=== PATIENT | female | born 1940 | race Caucasian/White ===

== ENCOUNTER → 2022-03-02 08:40 | Outpatient (CLI) | payer MEDICARE, SELFPAY ==
--- NOTE | 2022-03-02 08:49 | CT_ITS ---
FINAL REPORT CLINICAL HISTORY: CHRONIC ACQUIRED LYMPHEDEMA FINDINGS: Axial CT images of the abdomen and pelvis were obtained without intravenous contrast. Coronal reformatted images were also obtained.This study was performed with techniques to keep radiation doses as low as reasonably achievable (ALARA). Individualized dose reduction techniques using automated exposure control or adjustment of mA and/or kV according to the patient's size were employed. Abdomen: There is diffuse degenerative change in the visualized spine. There are spinal rods in the thoracolumbar spine and upper pelvis causing streak artifact which obscures visualization. There is no evidence of renal stone or hydronephrosis. There is a 17 mm probable cyst in the left hepatic lobe. The gallbladder is present. The spleen and pancreas have an unremarkable, unenhanced appearance. There is diffuse colonic diverticulosis. No inflammatory process is identified. Pelvis: Images of the pelvis reveal no evidence of ureteral dilation or ureteral stone.No mass or abnormal fluid collection is identified. There has been hysterectomy. IMPRESSION: Spinal rods causing streak artifact. 17 mm probable cyst in the left hepatic lobe. Diverticulosis without evidence diverticulitis. Reviewed, Interpreted and Dictated by Travis Figueroa III, MD Transcribed by Al Farmer Authenticated and . [facility]
--- NOTE | 2022-03-02 08:49 | CT_ITS ---
FINAL REPORT TECHNIQUE: Axial images were obtained from the lung apex to the mid abdomen by computed tomography. Coronal reformatted images were obtained. This study was performed with techniques to keep radiation doses as low as reasonably achievable, (ALARA). Individualized dose reduction techniques using automated exposure control or adjustment of mA and/or kV according to the patient''s size were employed. CLINICAL HISTORY: HISTORY OF LYMPHOMA FINDINGS: There is no axillary adenopathy. There is no hilar or mediastinal adenopathy. There is severe coronary artery calcification. Heart size is normal. There is no pericardial or pleural effusion. There is bilateral apical scarring. A calcified granuloma is seen in the left upper lobe. There is soft tissue in the lingula and left lower lobe favoring atelectasis or scarring. No suspicious infiltrate or nodule is identified. There is diffuse thoracic kyphosis with spinal rods and multilevel changes of kyphoplasty. IMPRESSION: Soft tissue in the lingula and left lower lobe favors atelectasis or scarring. Severe coronary artery calcification. Reviewed, Interpreted and Dictated by Travis Figueroa III, MD Transcribed by Al Farmer Authenticated and [facility]
== END ==
PROVIDERS: PCP Internal Medicine Adolescent Medicine; Visit Provider Nurse Practitioner Family
DX: I89.0 Lymphedema, not elsewhere classified (principal); Z85.79 Personal history of other malignant neoplasms of lymphoid, hematopoietic and related tissues
CPT/HCPCS: 71250; 74176

== ENCOUNTER → 2022-08-17 15:35 | Outpatient (CLI) | payer OTHER, MEDICARE, SELFPAY | PROVIDERS: PCP Nurse Practitioner Family; Visit Provider Nurse Practitioner Family | DX: S81.801S Unspecified open wound, right lower leg, sequela (principal); B96.5 Pseudomonas (aeruginosa) (mallei) (pseudomallei) as the cause of diseases classified elsewhere | CPT/HCPCS: 87070; 87077; 87186; 87205 ==

== ENCOUNTER 2022-09-07 14:30 | Outpatient (RCR) | payer OTHER, MEDICARE, SELFPAY ==
--- NOTE | 2022-08-17 15:41 | HMH.PTOPWND ---
Rehab Outpt Wound Evaluation Rehab OP Wound Evaluation Start: 08/17/22 14:50 Freq: Status: Active Protocol: Document 08/17/22 15:22 PHOYOHANA (Rec: 08/17/22 15:40 [id number] [id number]) E-signed By Harvey Mcclelland, PT Subjective/History History History This is the initial PT eval for Eri Retana 82 yowf who presents with c/o pain, tenderness, swelling, and wounds on her R lower leg x ~ 2 mos. She reports insidious onset of symptoms with wounds beginning as small blisters that opened and grew in size. She presents with significant drainage from the R lower leg wounds as well. She has PMH of CVI, CHF, UTI, severe chronic back pain throughout. Subjective Subjective TTP: 3/4 to R lower leg. 3+ pitting edema noted from R mid -calf distally. Severe erythema noted throughout R lower leg. Wound Eval Wound Right Lateral Calf Wound Type Stasis Ulcer Is This a Chronic Wound Yes Wound Length (cm) 6.0 Wound Width (cm) 4.0 Wound Depth (cm) 0.1 Wound Bed Appearance Beefy Red,Yellow,Slough Percentage Granulated (%) 10 Percentage of Slough (%) 90 Wound Margins Description Indistinct Surrounding Tissue Appearance Bright Red Edema Type Pitting Edema Degree 3+ Query Text:1+ Trace, Barely Detectable, Rebound 15-30 seconds 2+ Moderate, Slight Indentation, Rebound 10-20 seconds 3+ Deep, Deeper Indentation, Rebound > 30 seconds 4+ Very Deep, Rebound > 60 seconds Edema Appearance Weeping Drainage Description Yellow Drainage Amount Large Wound Topical Solution/Irrigant Saline Irrigant Primary Dressing Silver Dressing Comment opticell Ag Wound Secondary Dressing Type Unna Boot Comment 2 layer zinc compression wrap Wound Debridement Method Gauze,Mechanical Wound Debridement Amount of Tissue Minimal Removed Dressing Change Patient Tolerance Tolerated Well Right Anterior Ramirez Wound Type Stasis Ulcer Is This a Chronic Wound Yes Wound Length (cm) 1.5 Wound Width (cm)
== END 2022-09-07 14:35 | disposition home or self-care (01) ==
LOC: PT 14:30
PROVIDERS: PCP Internal Medicine Adolescent Medicine; Visit Provider Nurse Practitioner Family
DX: S81.802A Unspecified open wound, left lower leg, initial encounter (principal)
CPT/HCPCS: 29580; 97140; 97163; 97597

== ENCOUNTER 2022-12-01 11:46 | Emergency (ER) | payer OTHER, MEDICARE, SELFPAY ==
[2022-12-01] VITALS (14 sets, daily range): BP systolic 112–149; BP diastolic 59–94; PULSE 80–94; RESP 16–26; TEMP 36.6–36.8; O2SAT 92–96; BMI 27.4
--- NOTE | 2022-12-01 11:49 | ECG_ITS ---
APPROVED REPORT Exam: Resting ECG HR:78 bpm ECG Measurements Heart Rate 78 AXES AZ 231 P 44 QRSd 134 QRS -51 QT 432 T 37 QTc 465 Conclusion SINUS RHYTHM WITH FIRST DEGREE AV BLOCK INTRAVENTRICULAR CONDUCTION DELAY [130+ ms QRS DURATION] LEFT VENTRICULAR HYPERTROPHY AND ST-T CHANGE [VOLTAGE CRITERIA PLUS ST/T ABNORMALITY] INFERIOR MYOCARDIAL INFARCTION , PROBABLY OLD [40+ ms Q WAVE AND/OR ST/T ABNORMALITY IN II/aVF] ANTEROSEPTAL MYOCARDIAL INFARCTION , OF INDETERMINATE AGE [40+ ms Q WAVE IN V1-V4] ABNORMAL ECG UNCONFIRMED REPORT Electronically signed by : Piter Mcpherson MD 12/03/2022 14:25:44
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
--- NOTE | 2022-12-01 11:52 | PC.NURSE ---
FAST exam negative per Dr. Sanchez
--- NOTE | 2022-12-01 11:52 | PC.NURSE ---
EKG obtained per RT
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
--- NOTE | 2022-12-01 11:58 | PC.NURSE ---
Radiology at bedside.
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
--- NOTE | 2022-12-01 12:00 | PC.NURSE ---
pt going to CT at this time.
--- NOTE | 2022-12-01 12:00 | PC.NURSE ---
PT GOING TO CT
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
--- NOTE | 2022-12-01 12:04 | PC.NURSE ---
Shahida from [place] at bedside updating family.
[2022-12-01 12:13] LABS: Chloride 100 mmol/L (98-107)
[2022-12-01 12:14] LABS: Potassium 3.2 mmoL/L (3.5-5.1); Sodium 141 mmol/L (136-145)
[2022-12-01 12:16] LABS: Alanine Aminotransferase 16 U/L (12-78); Alkaline Phosphatase 108 U/L (38-126); Anion Gap 10.2 mEq/L (5-15); Aspartate Amino Transferase 31 U/L (14-36); Bilirubin,Total 0.6 mg/dl (0.2-1.3); Blood Urea Nitrogen 58 mg/dl (7-17); Carbon Dioxide 34 mmol/L (22.0-30.0); Creatinine Clearance Estimated 28 mL/min (50-200); Estimated Glomerular Filt Rate 29 ml/min (>60); GFR (African American) 35 ML/MIN (>60)
[2022-12-01 12:17] LABS: Albumin Level 4.1 g/dl (3.5-5.0); Albumin/Globulin Ratio 1.3 (1.1-1.8); Calcium 8.2 mg/dl (8.4-10.2); Globulin 3.2 g/dL (1.3-3.2); Glucose 105 mg/dl (74-100); Total Protein,Serum 7.3 g/dl (6.3-8.2)
[2022-12-01 12:19] LABS: Basophils % 0.5 % (0.1-2.0); Eosinophils # 0.1 K/mm3 (0.0-0.4); Eosinophils % 0.6 % (0.1-12.0); Hemoglobin 11.9 g/dL (12.2-16.2); Lymphocytes # 1.3 K/mm3 (0.7-4.5); Lymphocytes % 15.3 % (10-50); Mean Corpuscular HGB Conc 33.1 g/dL (31.8-35.4); Mean Corpuscular Hemoglobin 28.8 pg (27.0-31.2); Mean Platelet Volume 7.8 fl (7.4-10.4); Monocytes # 0.5 K/mm3 (0.1-1.0); Neutrophils # 6.8 K/mm3 (1.8-7.8); Neutrophils % 77.6 % (37.0-80.0); Platelet Count 302 K/mm3 (142-424); Red Blood Count 4.14 M/mm3 (4.20-5.40); Red Cell Distribution Width 14.9 % (11.5-17.5); White Blood Count 8.7 K/mm3 (4.8-10.8)
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
[2022-12-01 12:26] LABS: Activated Partial Thrombo Time 24.7 seconds (22.8-30.6); Prothrombin Time 9.8 seconds (10.1-12.5)
[2022-12-01 12:29] LABS: Troponin I 0.02 ng/ml (0.00-0.034)
--- NOTE | 2022-12-01 12:35 | PC.NURSE ---
pt returned from CT
--- NOTE | 2022-12-01 12:35 | PC.NURSE ---
[address] KNOX L SIDE OF HEAD
--- NOTE | 2022-12-01 12:38 | PC.NURSE ---
[employer]
--- NOTE | 2022-12-01 12:39 | XR_ITS ---
FINAL REPORT CLINICAL HISTORY: pain - trauma alert FINDINGS: Left knee Two views were obtained. There is no acute fracture or dislocation. There are mild degenerative changes. No soft tissue abnormality is identified. IMPRESSION: No acute process. Reviewed, Interpreted and Dictated by Travis Figueroa III, MD Transcribed by Ivette Muñoz Authenticated and . [facility]
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
--- NOTE | 2022-12-01 13:17 | PC.NURSE ---
FAMILY AT BEDSIDE
--- NOTE | 2022-12-01 13:20 | PC.NURSE ---
at pt's bedside.
--- NOTE | 2022-12-01 14:20 | PC.NURSE ---
rounded on pt and updated on POC
--- NOTE | 2022-12-01 15:49 | PC.NURSE ---
pt attends changed.
[2022-12-01 16:26] LABS: Troponin I 0.03 ng/ml (0.00-0.034)
--- NOTE | 2022-12-01 16:56 | PC.NURSE ---
waiting on pt's room to be moved to skilled side at [facility] for the night before calling report.
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
--- NOTE | 2022-12-01 18:35 | PC.NURSE ---
EMS at bedside to transport pt to [facility]
== END 2022-12-01 18:35 | disposition home or self-care (01) ==
PROVIDERS: Emergency Provider Emergency Medicine; PCP Nurse Practitioner Family
DX: R07.89 Other chest pain (principal); S09.8XXA Other specified injuries of head, initial encounter; Z79.01 Long term (current) use of anticoagulants; V79.50XA Passenger on bus injured in collision with unspecified motor vehicles in traffic accident, initial encounter
CPT/HCPCS: 36415; 70450; 70496; 70498; 71045; 71275; 72125; 72128; 72131; 72170; 73560; 74174; 80053; 84484; 85025; 85610; 85730; 93005; 96360; 99285; Q9967

== ENCOUNTER → 2023-04-13 12:08 | Outpatient (CLI) | payer MEDICARE, SELFPAY ==
[2023-04-13 12:21] LABS: Microscopic, Urine URINE MICROSCOPIC (MICROSCOPIC)
[2023-04-13 12:37] LABS: Squamous Epithelial Cell,Urine 20-50 #/hpf (0-5); WBC,Urine 50-100 #/hpf (0-3)
[2023-04-14 00:43] LABS: Appearance,Urine Cloudy (Clear); Bilirubin,Urine Negative (Negative); Blood, Urine Negative (Negative); Color,Urine Yellow (Yellow); Glucose,Urine (UA) Negative (Negative); Ketones,Urine Negative (Negative); Nitrate,Urine Negative (Negative); PH,Urine 6.5 (5.0-8.5); Protein,Urine Trace (Negative)
[2023-04-14 00:44] LABS: Leukocyte Esterase,Urine MODERATE (Negative)
== END ==
PROVIDERS: Nurse Practitioner Family; PCP Internal Medicine Adolescent Medicine; Visit Provider Internal Medicine Adolescent Medicine
DX: R41.0 Disorientation, unspecified (principal); B96.29 Other Escherichia coli [E. coli] as the cause of diseases classified elsewhere
CPT/HCPCS: 81001; 87086; 87088; 87186

== ENCOUNTER → 2023-05-17 21:07 | Outpatient (CLI) | payer MEDICARE, SELFPAY ==
[2023-05-17 21:47] LABS: Basophils % 0.4 % (0.1-2.0); Eosinophils # 0.2 K/mm3 (0.0-0.4); Eosinophils % 3.1 % (0.1-12.0); Hematocrit 35.1 % (37.0-47.0); Hemoglobin 11.1 g/dL (12.2-16.2); Lymphocytes # 1.1 K/mm3 (0.7-4.5); Lymphocytes % 18.8 % (10-50); Mean Corpuscular HGB Conc 31.7 g/dL (31.8-35.4); Mean Corpuscular Hemoglobin 28.1 pg (27.0-31.2); Mean Corpuscular Volume 88.5 fl (81-99); Monocytes # 0.6 K/mm3 (0.1-1.0); Monocytes % 9.8 % (1.7-9.3); Neutrophils # 3.9 K/mm3 (1.8-7.8); Neutrophils % 67.8 % (37.0-80.0); Platelet Count 272 K/mm3 (142-424); Red Blood Count 3.96 M/mm3 (4.20-5.40); Red Cell Distribution Width 15.2 % (11.5-17.5); White Blood Count 5.7 K/mm3 (4.8-10.8)
[2023-05-17 22:00] LABS: Chloride 103 mmol/L (98-107); Potassium 4.2 mmoL/L (3.5-5.1); Sodium 140 mmol/L (136-145)
[2023-05-17 22:03] LABS: Blood Urea Nitrogen 30 mg/dl (7-17); Estimated Glomerular Filt Rate 25 ml/min (>60); GFR (African American) 31 ML/MIN (>60)
[2023-05-17 22:04] LABS: Anion Gap 9.2 mEq/L (5-15); Calcium 7.8 mg/dl (8.4-10.2); Carbon Dioxide 32 mmol/L (22.0-30.0); Glucose 118 mg/dl (74-100)
== END ==
PROVIDERS: PCP Internal Medicine Adolescent Medicine; Visit Provider Internal Medicine Adolescent Medicine
DX: I25.119 Atherosclerotic heart disease of native coronary artery with unspecified angina pectoris
CPT/HCPCS: 80048; 85025

== ENCOUNTER → 2023-06-18 11:15 | Outpatient (CLI) | payer OTHER, MEDICARE, SELFPAY ==
[2023-06-18 11:31] LABS: Microscopic, Urine URINE MICROSCOPIC (MICROSCOPIC)
[2023-06-18 11:52] LABS: Appearance,Urine SL CLOUDY (Clear); Bilirubin,Urine Negative (Negative); Blood, Urine 1+ (Negative); Color,Urine YELLOW (Yellow); Glucose,Urine (UA) Negative (Negative); Ketones,Urine Negative (Negative); Leukocyte Esterase,Urine 3+ (Negative); Nitrate,Urine POSITIVE (Negative); PH,Urine 6.5 (5.0-8.5); Protein,Urine Negative (Negative); Specific Gravity, Urine 1.015 (1.005-1.030); Urobilinogen,Urine 0.2 EU/dl (0.2)
[2023-06-18 12:11] LABS: Bacteria,Urine 2+ /lpf; RBC,Urine Occasional #/hpf (0-3); Squamous Epithelial Cell,Urine Occasional #/hpf (0-5); WBC,Urine TNTC #/hpf (0-3)
== END ==
PROVIDERS: PCP Internal Medicine Adolescent Medicine; Visit Provider Internal Medicine Adolescent Medicine
DX: N39.0 Urinary tract infection, site not specified (principal); B96.29 Other Escherichia coli [E. coli] as the cause of diseases classified elsewhere
CPT/HCPCS: 81001; 87086

== ENCOUNTER → 2023-07-09 13:14 | Outpatient (CLI) | payer OTHER, SELFPAY ==
[2023-07-09 13:47] LABS: Microscopic, Urine URINE MICROSCOPIC (MICROSCOPIC)
[2023-07-09 13:53] LABS: Appearance,Urine SL CLOUDY (Clear); Bilirubin,Urine Negative (Negative); Blood, Urine 1+ (Negative); Color,Urine YELLOW (Yellow); Glucose,Urine (UA) Negative (Negative); Ketones,Urine Negative (Negative); Leukocyte Esterase,Urine 3+ (Negative); Nitrate,Urine POSITIVE (Negative); Protein,Urine Negative (Negative); Specific Gravity, Urine 1.015 (1.005-1.030); Urobilinogen,Urine 0.2 EU/dl (0.2)
[2023-07-09 14:03] LABS: Bacteria,Urine 2+ /lpf; WBC,Urine 20-50 #/hpf (0-3)
== END ==
PROVIDERS: Nurse Practitioner Family; PCP Internal Medicine Adolescent Medicine; Visit Provider Internal Medicine Adolescent Medicine
DX: N39.0 Urinary tract infection, site not specified (principal); B96.89 Other specified bacterial agents as the cause of diseases classified elsewhere
CPT/HCPCS: 81001; 87086

== ENCOUNTER 2023-10-20 13:35 | Outpatient (CLI) | payer OTHER, SELFPAY ==
[2023-10-20 13:51] LABS: Microscopic, Urine URINE MICROSCOPIC (MICROSCOPIC)
[2023-10-20 14:10] LABS: Appearance,Urine CLEAR (Clear); Bilirubin,Urine Negative (Negative); Blood, Urine 1+ (Negative); Color,Urine YELLOW (Yellow); Glucose,Urine (UA) Negative (Negative); Ketones,Urine Negative (Negative); Leukocyte Esterase,Urine 3+ (Negative); Nitrate,Urine POSITIVE (Negative); Protein,Urine TRACE (Negative); Urobilinogen,Urine 0.2 EU/dl (0.2)
[2023-10-20 14:37] LABS: WBC,Urine TNTC #/hpf (0-3)
[2023-10-20 14:39] LABS: Bacteria,Urine 3+ /lpf
== END 2023-10-20 23:59 ==
LOC: LAB.DROPOF 13:36
PROVIDERS: PCP Internal Medicine Adolescent Medicine; Visit Provider Internal Medicine Adolescent Medicine
DX: N39.0 Urinary tract infection, site not specified (principal); B96.29 Other Escherichia coli [E. coli] as the cause of diseases classified elsewhere
CPT/HCPCS: 81001; 87086

== ENCOUNTER 2024-05-01 08:15 | Emergency (ER) | payer OTHER, SELFPAY ==
[2024-05-01] VITALS (12 sets, daily range): BP systolic 98–154; BP diastolic 52–78; PULSE 92–107; RESP 15–22; TEMP 36.6; O2SAT 93–97; BMI 23.4
--- NOTE | 2024-05-01 08:16 | ECG_ITS ---
APPROVED REPORT Exam: Resting ECG HR:107 bpm ECG Measurements Heart Rate 107 AXES QRSd 129 QRS -59 QT 367 T 84 QTc 430 Conclusion A-fib RVR Right bundle branch block Bigeminy No obvious acute ischemic change Electronically signed by : BROOKLYN KNOX, 05/02/2024 07:18:06
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
[2024-05-01 08:31] LABS: Basophils # 0.1 K/mm3 (0-0.2); Basophils % 0.8 % (0.1-2.0); Eosinophils # 0.3 K/mm3 (0.0-0.4); Eosinophils % 3.4 % (0.1-12.0); Hematocrit 46.7 % (37.0-47.0); Hemoglobin 15.1 g/dL (12.2-16.2); Lymphocytes # 1.7 K/mm3 (0.7-4.5); Lymphocytes % 20.7 % (10-50); Mean Corpuscular HGB Conc 32.3 g/dL (31.8-35.4); Mean Corpuscular Hemoglobin 29.1 pg (27.0-31.2); Mean Corpuscular Volume 90.2 fl (81-99); Monocytes # 0.5 K/mm3 (0.1-1.0); Monocytes % 6.3 % (1.7-9.3); Neutrophils # 5.7 K/mm3 (1.8-7.8); Neutrophils % 68.8 % (37.0-80.0); Platelet Count 313 K/mm3 (142-424); Red Blood Count 5.18 M/mm3 (4.20-5.40); Red Cell Distribution Width 14.8 % (11.5-17.5); White Blood Count 8.2 K/mm3 (4.8-10.8)
--- NOTE | 2024-05-01 08:32 | HMH.EDCP ---
Discharge Plan Disposition Patient Disposition: Home, Self-Care Chief Complaint: Chest Pain Referrals Follow up/Referrals: Provider,Referral, [Primary Care Provider] - See instructions Activity Restrictions/Add. Instructions Additional Instructions/Restrictions: Call your family doctor to establish care for this visit to the emergency department and schedule follow-up within 48 hours to ensure improvement. If you have any worsening of your condition or any other concerning signs or symptoms, return to the emergency department or your primary care doctor for further evaluation. Take daily 81 mg aspirin. Have your family doctor redraw labs to ensure improvement. Clinical Impressions Clinical Impression: Acute dyspnea, A-fib Print Language Print Language: Ghanaian Discharge ED Provider: Yo Sanchez General Chief Complaint: Chest Pain Stated Complaint: Chest Pain Time Seen by Provider: 05/01/24 08:24 Mode of Arrival: EMS Source of Information: Patient and EMS Limitations: No Limitations Description of Symptoms (Recalled from ER Triage Doc. by RN): chest pain,numbness and tingling in arms History of Present Illness HPI narrative: Please note that above description of symptoms, in this electronic medical record under categorization of recalled from ER triage doctor by RN are reflective of an initial nursing assessment, however, is not reflective of my full history and physical exam that was personally taken and clarified. Consequentially, this preceding description of symptoms, which may include the patient's categorized chief complaint in the EMR, do not reflect my personal clinical impression, and the ultimate description of history of present illness and patient stated complaints should be deferred to this section of the note. Unless stated otherwise or congruent with this section of the note, additional signs, symptoms, or incongruence should be interpreted as inaccurate with my clinical impression. Related Data Allergies Allergy/AdvReac Type Severity Reaction Status Date / Time Cephalosporins Allergy Verified 12/01/22 11:54 clindamycin Allergy Verified 12/01/22 11:54 Penicillins Allergy Verified 12/01/22 11:54 [facility] Disclaimer: The information contained in this section may have been updated after the patient was seen, as this information can be updated by other users. Social History (Updated 12/01/22 @ 16:38 by Yo Sanchez MD) Smoking Status: Former smoker alcohol intake: never current occupational status: unemployed Travel in the last 8 weeks: None ROS Obtained: Yes All systems reviewed & no additional complaints except as documented Physical Exam General General appearance: alert Neck Neck exam: Present trachea midline and other (kyphotic) Chest Chest inspection: Present normal inspection and symmetric chest wall rise Respiratory Respiratory exam: Present normal lung sounds bilaterally; Absent respiratory distress, wheezes, stridor, accessory muscle use or prolonged expiratory phase Cardiovascular Cardiovascular exam: Present tachycardia, irregular rhythm, normal heart sounds and other (Pulses equal and symmetric in upper and lower extremities); Absent systolic murmur Abdominal Exam Abdominal exam: Present soft; Absent distention, tenderness, guarding or rebound Extremities Exam Extremities exam: Present normal inspection; Absent edema Neurological Exam Neurological exam: Present alert, oriented X3 and CN II-XII intact; Absent motor sensory deficit Skin Skin exam: Present warm and dry; Absent cyanosis, diaphoresis or pallor HEART Score HEART Score HEART Score assessment performed?: Yes History (anamnesis): Moderately suspicious ECG: Normal Age: >65 years Risk factors: 3 or more risk factors Troponin: </= normal limit HEART Score: 5 Critical Care Critical Care Time Critical Care Time: No Medical Decision Making Medical Records Medical records reviewed: Yes I reviewed the patient's medical records. Cabrera Inquiry Pt receiving controlled substance: No Cabrera was queried for this patient: No Vital Signs Vital Signs: 05/01/24 08:15 05/01/24 08:22 05/01/24 09:53 Temperature 98 F Temperature Source Oral Pulse Rate 107 H 100 H Pulse Rate [Right] 106 H Respiratory Rate 20 15 Blood Pressure 116/70 Blood Pressure [Right Arm] 150/76 H Blood Pressure Mean 83 Blood Pressure Mean [Right Arm] 100 02 Sat by Pulse Oximetry 95 93 L Oxygen Delivery Method Room Air Room Air 05/01/24 10:00 05/01/24 10:31 05/01/24 11:52 Temperature Temperature Source Pulse Rate 99 H 107 H 94 H Pulse Rate [Right] Respiratory Rate 16 Blood Pressure 124/65 150/71 H 136/78 Blood Pressure [Right Arm] Blood Pressure Mean 77 91 89 Blood Pressure Mean [Right Arm] 02 Sat by Pulse Oximetry 97 95 94 L Oxygen Delivery Method Room Air Room Air Room Air 05/01/24 12:01 05/01/24 12:30 Temperature Temperature Source Pulse Rate 92 H 94 H Pulse Rate [Right] Respiratory Rate 21 17 Blood Pressure 98/73 L 135/73 Blood Pressure [Right Arm] Blood Pressure Mean 81 91 Blood Pressure Mean [Right Arm] 02 Sat by Pulse Oximetry 96 95 Oxygen Delivery Method Room Air Room Air Lab Data Labs: Lab Results 05/01/24 08:20: WBC 8.2, RBC 5.18, Hgb 15.1, Hct 46.7, MCV 90.2, MCH 29.1, MCHC 32.3, RDW 14.8, Plt Count 313, MPV 7.0 L, Neut % (Auto) 68.8, Lymph % (Auto) 20.7, Winston % (Auto) 6.3, Eos % (Auto) 3.4, Baso % (Auto) 0.8, Neut # (Auto) 5.7, Lymph # (Auto) 1.7, Winston # (Auto) 0.5, Eos # (Auto) 0.3, Baso # (Auto) 0.1, Sodium 141, Potassium 4.4, Chloride 107, Carbon Dioxide 28, Anion Gap 10.4, BUN 41 H, Creatinine 1.50 H, Estimated Creat Clear 24, Estimated GFR 33 L, Est GFR ( Amer) 40 L, Glucose 99, Calcium 8.4, Total Bilirubin 1.0, AST 29, ALT 16, Alkaline Phosphatase 88, Troponin I < 0.01, NT-Pro-B Natriuret Pep 2420 H, Total Protein 7.2, Albumin 4.1, Globulin 3.1, Albumin/Globulin Ratio 1.3, Lipase 30 05/01/24 08:25: Magnesium 2.3 05/01/24 11:53: Troponin I < 0.01 05/01/24 08:20 05/01/24 08:20 Response Orders (Tests/Meds): ED MEDICATIONS Discontinued Medications Generic Name Dose Route Start Last Admin Trade Name Freq PRN Reason Stop Dose Admin Furosemide 40 mg 05/01/24 11:35 05/01/24 11:50 Furosemide 40mg/4ml Vial IV 05/01/24 11:36 40 mg ONCE ONE Administration ORDERS Category Date Time Status CXR --portable [XR chest portable] Stat Exams 05/01/24 08:24 Completed CBC w/Auto Diff [Complete Blood Count Auto Diff] Stat Lab 05/01/24 08:20 Completed CMP [Comprehensive Metabolic Panel] Stat Lab 05/01/24 08:20 Completed Lipase Stat Lab 05/01/24 08:20 Completed Magnesium Stat Lab 09/17/24 08:25 Completed NT Pro Brain Natriuretic Pep. Stat Lab 05/01/24 08:20 Completed Trop T [Troponin I] Stat Lab 05/01/24 08:20 Completed Troponin I Q3H Lab 05/01/24 11:53 Completed Troponin I Q3H Lab 05/01/24 14:30 Ordered MDM Narrative Medical Decision Narrative: 84-year-old female history of hypertension, hyperlipidemia, CAD without stenting, CHF, COPD on 2 L nasal cannula at home presenting with multiple complaints. Patient states that she woke up this morning, 05/01. Shortly after waking up, started having difficulty breathing, denies any chest pain during this entire incident. States that she needed to breathe through my mouth to get enough air, and shortly thereafter started having numbness and tingling going down her right arm. States that she also had some tingling going down her left arm. EMS was contacted. On arrival, patient given aspirin. EKG/twelve-lead unconcerning after being sent to [facility] here at [facility]. Per EMS, left upper extremity was cold, however on arrival was unremarkable and asymptomatic to patient other than tingling going down to her left elbow. Denies new or worsening cough, syncope, diaphoresis, nausea or vomiting, worsening lower extremity edema, recent sick contacts that she knows of, or any other concerns. History was obtained via conversation with patient. On arrival, patient hemodynamically stable, alert, oriented x4, appropriate, GCS 15, moving all extremities spontaneously, pupils equal and reactive to light. Full physical exam performed and significant for chronically ill-appearing female who is in no acute distress. Cardiac exam without murmurs gallops rubs, but she has an irregularly irregular rhythm mildly tachycardic around 110 bpm with no murmurs gallops or rubs. Pulses are equal and symmetric in upper and lower extremities without deficit or delay. Neurologically intact and at baseline. No motor or sensory deficits on my exam. Abdomen soft, nontender, nondistended. No lower extremity edema. Lungs are clear to auscultation anterior and posteriorly. Differential includes microvascular coronary artery disease, CHF, ACS, MO, coronary artery dissection, pneumothorax, PE, dissection, pericarditis, myocarditis, pneumothorax, aortic aneurysm, pneumonia, bronchitis, among others. Patient was given 324 mg aspirin with EMS, 1 nitroglycerin 0.4 mg sublingual for symptomatic management and correction of underlying abnormalities. Patient placed on continuous cardiac monitoring and continuous pulse ox with initial blood pressure 150/76, heart rate 106, saturation 85% on room air. Independent interpretation of EKG shows atrial fibrillation RVR 107 bpm with right bundle branch block morphology. Patient also having frequent PVCs. QRS 129, QTc 430. No acute ischemic change. Workup independently interpreted and significant for nonactionable CBC or chemistry. Patient's CKD stable. Elevated BNP with no baseline.. On independent interpretation of imaging, no acute cardiopulmonary airspace disease on chest x-ray. See radiology read for full review of final results. Heart score 5. [id number] score 6. Patient was placed in observation beginning at 8 AM in order to rule out evolving MO with delta troponins and determine need for admission versus home-going. The patient was provided serial exams, monitoring while awaiting results. Independent interpretation of results demonstrated negative delta troponin. On reevaluation, patient no longer in atrial fibrillation, but throughout the stay on alarm security or surveillance monitor, in and out of A-fib. At this time, I feel patient is appropriate for discharge, however prior to discharge, I contacted the hospitalist and discussed her case. Because patient not on new oxygen requirement, normal chest x-ray, well-appearing, no acute distress, deemed appropriate for outpatient management. Total observation time 3.5 hours. Prolonged discussion was had with patient and visitor regarding anticoagulation given high risk for fall, ultimately after shared decision making and discussion of risks and benefits, patient opted for no anticoagulation at this time other than daily aspirin. I feel this is appropriate and justified. Because patient at baseline without signs or symptoms of clinical decompensation, deemed appropriate for discharge. Results were relayed to patient who voiced understanding and were agreeable to outpatient management and follow up. I discussed my clinical impression with patient and answered all questions. At this time, the evidence for any other entities in the differential is insufficient to warrant any further testing or ED observation. This was explained as well. Advisory was given that persistent or worsening symptoms require further evaluation. I confirmed the understanding of this discussion. Emergency Service Worker disclaimer Much of this encounter note is an electronic insurance agency owner spoken language to printed text. Electronic insurance agency owner of the spoken language may permit errors. Although I have reviewed the note, some errors may still exist.
[2024-05-01 08:34] LABS: Albumin Level 4.1 g/dl (3.5-5.0); Chloride 107 mmol/L (98-107)
[2024-05-01 08:35] LABS: Potassium 4.4 mmoL/L (3.5-5.1); Sodium 141 mmol/L (136-145)
[2024-05-01 08:37] LABS: Alanine Aminotransferase 16 U/L (12-78); Albumin/Globulin Ratio 1.3 (1.1-1.8); Alkaline Phosphatase 88 U/L (38-126); Anion Gap 10.4 mEq/L (5-15); Aspartate Amino Transferase 29 U/L (14-36); Blood Urea Nitrogen 41 mg/dl (7-17); Carbon Dioxide 28 mmol/L (22.0-30.0); Creatinine Clearance Estimated 24 mL/min (50-200); Estimated Glomerular Filt Rate 33 ml/min (>60); GFR (African American) 40 ML/MIN (>60); Globulin 3.1 g/dL (1.3-3.2); Total Protein,Serum 7.2 g/dl (6.3-8.2)
[2024-05-01 08:38] LABS: Calcium 8.4 mg/dl (8.4-10.2); Glucose 99 mg/dl (74-100); Lipase 30 U/L (23-300)
[2024-05-01 08:46] LABS: NT Pro Brain Natriuretic Pep. 2420 pg/mL (0-450)
[2024-05-01 08:50] LABS: Troponin I < 0.01 ng/ml (0.00-0.034)
[2024-05-01 09:18] LABS: Magnesium 2.3 mg/dl (1.6-2.3)
--- NOTE | 2024-05-01 10:17 | PC.NURSE ---
Dr. Sanchez at BS for update on POC; family at BS
[2024-05-01] MEDS: FUROSEMIDE 40MG/4ML VIAL 40 MG IV (11:50)
[2024-05-01 12:19] LABS: Troponin I < 0.01 ng/ml (0.00-0.034)
== END 2024-05-01 14:21 | disposition home or self-care (01) ==
PROVIDERS: Emergency Provider Emergency Medicine
DX: R06.02 Shortness of breath (principal); R07.9 Chest pain, unspecified; I48.91 Unspecified atrial fibrillation; I45.10 Unspecified right bundle-branch block
CPT/HCPCS: 71045; 80053; 83690; 83735; 83880; 84484; 85025; 93005; 96374; 99285; J1940

== ENCOUNTER 2024-08-21 13:35 | Outpatient (CLI) | payer OTHER, SELFPAY ==
[2024-08-21 14:00] LABS: Basophils % 0.3 % (0.1-2.0); Eosinophils # 0.1 K/mm3 (0.0-0.4); Eosinophils % 0.9 % (0.1-12.0); Hematocrit 42.9 % (37.0-47.0); Hemoglobin 14.2 g/dL (12.2-16.2); Lymphocytes # 1.1 K/mm3 (0.7-4.5); Lymphocytes % 9.1 % (10-50); Mean Corpuscular HGB Conc 33.1 g/dL (31.8-35.4); Mean Corpuscular Volume 84.4 fl (81-99); Mean Platelet Volume 10.8 fl (7.4-10.4); Monocytes # 1.1 K/mm3 (0.1-1.0); Monocytes % 9.5 % (1.7-9.3); Neutrophils # 9.5 K/mm3 (1.8-7.8); Neutrophils % 79.5 % (37.0-80.0); Platelet Count 377 K/mm3 (142-424); Red Blood Count 5.08 M/mm3 (4.20-5.40); Red Cell Distribution Width 14.7 % (11.5-17.5)
[2024-08-21 14:31] LABS: Anion Gap 19.3 mEq/L (5-15); Blood Urea Nitrogen 35 mg/dl (7-17); Calcium 9.2 mg/dl (8.4-10.2); Carbon Dioxide 24 mmol/L (22.0-30.0); Chloride 104 mmol/L (98-107); Estimated Glomerular Filt Rate 24 ml/min (>60); GFR (African American) 29 ML/MIN (>60); Glucose 113 mg/dl (74-100); Potassium 4.3 mmoL/L (3.5-5.1); Sodium 143 mmol/L (136-145)
== END 2024-08-21 23:59 | disposition home or self-care (01) ==
PROVIDERS: PCP Nurse Practitioner Family; Visit Provider Nurse Practitioner Family
DX: J06.9 Acute upper respiratory infection, unspecified (principal)
CPT/HCPCS: 80048; 85025

== ENCOUNTER 2024-08-23 14:05 | Inpatient (IN) | payer MEDICARE, SELFPAY ==
[2024-08-23] VITALS (12 sets, daily range): BP systolic 105–158; BP diastolic 59–90; PULSE 88–142; RESP 18–35; TEMP 36.4–38.8; O2SAT 77–98; BMI 26.1; BMI 25.9; BMI 23.4
--- NOTE | 2024-08-23 14:12 | PC.NURSE ---
Dr. Birmingham at for pt eval
--- NOTE | 2024-08-23 14:19 | XR_ITS ---
FINAL REPORT CLINICAL HISTORY: Aspiration, pneumonia FINDINGS: Two oblique frontal views were obtained. There is extensive posterior fusion hardware bridging the thoracic and upper lumbar spine. There is scarring in the right upper lobe. There is localized airspace infiltrate at the left base consistent with acute pneumonia. IMPRESSION: Acute pneumonia at the left base. Reviewed, Interpreted and Dictated by Amanuel Burnett MD Transcribed by Ivette Muñoz Authenticated and [facility]
--- NOTE | 2024-08-23 14:19 | ECG_ITS ---
APPROVED REPORT Exam: Resting ECG HR:140 bpm ECG Measurements Heart Rate 140 AXES TX 175 P -49 QRSd 138 QRS -59 QT 339 T 103 QTc 420 Conclusion ECTOPIC ATRIAL TACHYCARDIA, POSSIBLE ATRIAL FLUTTER INTRAVENTRICULAR CONDUCTION DELAY [130+ ms QRS DURATION] LEFT VENTRICULAR HYPERTROPHY AND ST-T CHANGE [VOLTAGE CRITERIA PLUS ST/T ABNORMALITY] POSSIBLE ANTERIOR MYOCARDIAL INFARCTION , PROBABLY OLD [30 ms Q WAVE IN V3/V4, OR R < 0.2 mV IN V4] INFERIOR MYOCARDIAL INFARCTION , PROBABLY OLD [40+ ms Q WAVE AND/OR ST/T ABNORMALITY IN II/aVF] ABNORMAL ECG UNCONFIRMED REPORT Electronically signed by : PRUDENCE HERBERT, 08/24/2024 05:40:43
--- NOTE | 2024-08-23 14:19 | CT_ITS ---
FINAL REPORT TECHNIQUE: Axial imaging of the head was obtained without contrast. This study was performed with techniques to keep radiation doses as low as reasonably achievable, (ALARA). Individualized dose reduction techniques using automated exposure control or adjustment of mA and/or kV according to the patient''s size were employed. CLINICAL HISTORY: AMS COMPARISON: 12/01/2022 FINDINGS: There is off axis positioning. The exam is markedly suboptimal. The patient is in the decubitus position. Moderate atrophy is identified. There are extensive changes of chronic microvascular ischemia. There is an area of cyto toxic edema in the left posterior parietal lobe, new since prior. Findings are best seen on images 47-62 consistent with interval cortical ischemia. No acute hemorrhage is identified. There is near complete opacification of the left maxillary sinus. There is mucoperiosteal thickening in the right maxillary sinus. Air-fluid level is seen within the sphenoid sinus. Sinusitis is new since previous. IMPRESSION: Extensive changes of chronic microvascular ischemia. New area of cytotoxic edema in the left posterior parietal lobe, probably related to a subacute ischemic infarct. New bilateral maxillary and sphenoid sinusitis. Reviewed, Interpreted and Dictated by Amanuel Burnett MD Transcribed by Ivette Muñoz Authenticated and [facility]
[2024-08-23 14:31] LABS: Microscopic, Urine URINE MICROSCOPIC (MICROSCOPIC)
[2024-08-23 14:33] LABS: Appearance,Urine CLEAR (Clear); Bilirubin,Urine Negative (Negative); Blood, Urine Negative (Negative); Color,Urine YELLOW (Yellow); Glucose,Urine (UA) Negative (Negative); Ketones,Urine Negative (Negative); Leukocyte Esterase,Urine Negative (Negative); Nitrate,Urine Negative (Negative); PH,Urine 5.5 (5.0-8.5); Protein,Urine Negative (Negative); Specific Gravity, Urine 1.015 (1.005-1.030); Urobilinogen,Urine 0.2 EU/dl (0.2)
--- NOTE | 2024-08-23 14:59 | PC.NURSE ---
reported lactic of [address] Birmingham
[2024-08-23 15:02] LABS: Basophils # 0.1 K/mm3 (0-0.2); Basophils % 0.3 % (0.1-2.0); Eosinophils % 0.2 % (0.1-12.0); Hematocrit 41.9 % (37.0-47.0); Hemoglobin 13.6 g/dL (12.2-16.2); Lymphocytes # 1.3 K/mm3 (0.7-4.5); Lymphocytes % 6.9 % (10-50); Mean Corpuscular HGB Conc 32.5 g/dL (31.8-35.4); Mean Corpuscular Hemoglobin 27.6 pg (27.0-31.2); Mean Corpuscular Volume 85.2 fl (81-99); Mean Platelet Volume 10.3 fl (7.4-10.4); Monocytes # 1.4 K/mm3 (0.1-1.0); Monocytes % 7.5 % (1.7-9.3); Neutrophils # 15.8 K/mm3 (1.8-7.8); Neutrophils % 84.2 % (37.0-80.0); Platelet Count 457 K/mm3 (142-424); Red Blood Count 4.92 M/mm3 (4.20-5.40); Red Cell Distribution Width 14.5 % (11.5-17.5); White Blood Count 18.8 K/mm3 (4.8-10.8)
[2024-08-23 15:04] LABS: VBG Base Excess -3.4 mmol/L (-2.4-2.3); VBG Oxygen Saturation 93.1 % (50-70); VBG PCO2 27.4 mmol/L (35-51); VBG PH 7.48 mmol/L (7.31-7.41); VBG PO2 62.6 mmol/L (28-40); VBG Total CO2 20.9 mmol/L (23-27)
[2024-08-23 15:07] LABS: MANUAL DIFFERENTIAL MANUAL DIFFERENTIAL (MANUAL DIFF)
[2024-08-23 15:09] LABS: Amorphous Sediment,Urine 1+ /lpf; RBC,Urine Occasional #/hpf (0-3); WBC,Urine Occasional #/hpf (0-3)
[2024-08-23 15:10] LABS: Hyaline Casts,Urine Occasional #/lpf (0)
[2024-08-23 15:42] LABS: Free T4 (Free Thyroxine) 2.12 ng/dl (0.78-2.19)
[2024-08-23 16:12] LABS: Aspartate Amino Transferase 50 U/L (14-36); Bilirubin,Total 1.1 mg/dl (0.2-1.3); Blood Urea Nitrogen 59 mg/dl (7-17); Carbon Dioxide 20 mmol/L (22.0-30.0); Chloride 106 mmol/L (98-107); Creatinine Clearance Estimated 21 mL/min (50-200); Estimated Glomerular Filt Rate 22 ml/min (>60); GFR (African American) 27 ML/MIN (>60); Glucose 91 mg/dl (74-100); Lymphocytes % 7 % (10-50); Monocytes % 4 % (2-9); Neutrophils % 89 % (42-76); Sodium 141 mmol/L (136-145); Total Cells Counted 100
[2024-08-23 16:13] LABS: Alanine Aminotransferase 24 U/L (12-78); Albumin Level 3.9 g/dl (3.5-5.0); Alkaline Phosphatase 111 U/L (38-126); Globulin 3.8 g/dL (1.3-3.2); Platelet Estimate Slight Increase; RBC Morphology Normal; Total Protein,Serum 7.7 g/dl (6.3-8.2)
--- NOTE | 2024-08-23 16:33 | HMH.EDGENADL ---
Discharge Plan Disposition Patient Disposition: Admitted Chief Complaint: Altered Mental Status Referrals Follow up/Referrals: Provider,Referral, [Primary Care Provider] - See instructions Clinical Impressions Clinical Impression: Pneumonia, Severe sepsis, Acute hypoxic respiratory failure, Acute encephalopathy Instructions Patient Instructions: DI for Altered Mental Status Print Language Print Language: Polish Discharge ED Provider: Cleopatra Birmingham General Adult HPI <Cleopatra Birmingham MD - Last Filed: 08/23/24 17:23> General Chief complaint: Altered Mental Status Stated complaint: R side deficit, AMS & declining Time Seen by Provider: 08/23/24 14:19 Mode of Arrival: EMS Source of Information: EMS Limitations: No Limitations Description of Symptoms (Recalled from ER Triage Doc. by RN): EMS reports they were called because of a decline in pts baseline. Per [facility] she is alert but pleasantly confused at baseline and is able to feed herself and preform some ADLS. pt at this time is not speaking or communicating. pts last known norm was 1/5. pt is having muscle twitches in her RUE. pt was recently negative for flu/covid. pt has a significant weak, wet cough. pts FS is 94 History of Present Illness HPI narrative: Pt is an 84 y/o female presenting with altered mental status. Pt arrives via EMS from [facility]. Pt is unable to provide history herself due to AMS. Per EMS, they were called to the facility due to general patient decline. Her baseline is reported to be fairly functional and the patient is typically talkative. On arrival, she is not verbal. EMS reports negative Covid/Flu test and LKN of 1/5. No known trauma. Pt is DNR. Related Data Allergies Allergy/AdvReac Type Severity Reaction Status Date / Time aspirin Allergy Unknown Verified 08/23/24 15:17 allergy reaction Cephalosporins Allergy Unknown Verified 08/23/24 15:17 allergy reaction clindamycin Allergy Unknown Verified 08/23/24 15:17 allergy reaction codeine Allergy Unknown Verified 08/23/24 15:17 allergy reaction meperidine (From Demerol) Allergy Unknown Verified 08/23/24 15:17 allergy reaction morphine Allergy Unknown Verified 08/23/24 15:17 allergy reaction Morpholine Analogues Allergy Unknown Verified 08/23/24 15:17 allergy reaction Penicillins Allergy Unknown Verified 08/23/24 15:17 allergy reaction Sulfa (Sulfonamide Allergy Unknown Verified 08/23/24 15:17 Antibiotics) allergy reaction acetaminophen (From Percocet) AdvReac Unknown Verified 08/23/24 15:17 allergy reaction oxycodone (From Percocet) AdvReac Unknown Verified 08/23/24 15:17 allergy reaction PFSH <Cleopatra Birmingham MD - Last Filed: 08/23/24 17:23> PFSH Disclaimer: The information contained in this section may have been updated after the patient was seen, as this information can be updated by other users. Social History (Updated 12/01/22 @ 16:38 by Yo Sanchez MD) Smoking Status: Unknown if ever smoked alcohol intake: never current occupational status: unemployed Travel in the last 8 weeks: None <Cleopatra Birmingham MD - Last Filed: 08/23/24 17:23> ROS Obtained: Yes unobtainable due to mental status Physical Exam <Cleopatra Birmingham MD - Last Filed: 08/23/24 17:23> General General appearance: alert and in no apparent distress Head Head exam: atraumatic, normocephalic and normal inspection Eye Eye exam: Present normal appearance, PERRL and EOMI (no rightward movement) ENT ENT exam: Present normal exam, normal oropharynx, mucous membranes dry and normal external ear exam Neck Neck exam: Present trachea midline; Absent normal inspection (severe kyphosis lower cervical and upper thoracic spine), full ROM, meningismus or lymphadenopathy Chest Chest inspection: Present normal inspection and symmetric chest wall rise; Absent tenderness Respiratory Respiratory exam: Present other (rhonchi in right middle and lower lung barrientos); Absent normal lung sounds bilaterally or respiratory distress Cardiovascular Cardiovascular exam: Present regular rate and normal rhythm; Absent JVD Abdominal Exam Abdominal exam: Present soft and normal bowel sounds; Absent distention, tenderness or guarding Extremities Exam Extremities exam: Present normal inspection and normal capillary refill; Absent calf tenderness Back Exam Back exam: Present other (pressure wound to mid-thoracic spine); Absent tenderness Neurological Exam Neurological exam: Present alert; Absent motor sensory deficit Expanded Neurological Exam Coma scale eye opening: Spontaneous Coma scale motor response: Localizes to pain Coma scale verbal response: Incomprehensible Coma scale total: 11 Psychiatric Psychiatric exam: Present normal affect and normal mood Skin Skin exam: Present warm, dry, intact and normal color Lymphatic Lymphatic Findings: no adenopathy <Latasha Kimble MD - Last Filed: 08/23/24 17:36> Expanded Neurological Exam Coma scale total: 11 Medical Decision Making <Cleopatra Birmingham MD - Last Filed: 08/23/24 17:23> Medical Records Medical records reviewed: Yes I reviewed the patient's medical records. Screening: Per USPSTF and CDC recommendations, given the prevalence of disease in our region, it is our hospital?s policy to screen for HIV and viral Hepatitis for all patients aged 18 and over and those with ongoing risk factors. Cabrera Inquiry Pt receiving controlled substance: No Cabrera was queried for this patient: No Vital Signs: 08/23/24 14:05 Temperature 98.3 F Temperature Source Oral Pulse Rate [Left] 88 Respiratory Rate 18 Blood Pressure [Right Arm] 146/89 H Blood Pressure Mean [Right Arm] 108 Blood Pressure Source [Right Arm] Automatic Cuff Blood Pressure Position [Right Arm] Sitting 02 Sat by Pulse Oximetry 98 Oxygen Delivery Method Room Air Nasal Cannula Oxygen Flow Rate (LPM) 2 Lab Data Lab results reviewed: Yes I reviewed the patient's lab results. Lab Results 08/23/24 14:25: Urine Color Yellow, Urine Appearance Clear, Urine pH 5.5, Ur Specific [place] 1.015, Urine Protein Negative, Urine Glucose (UA) Negative, Urine Ketones Negative, Urine Blood Negative, Urine Nitrate Negative, Urine Bilirubin Negative, Urine Urobilinogen 0.2, Ur Leukocyte Esterase Negative, Urine RBC Occasional, Urine WBC Occasional, Ur Squamous Epith Cells 3-5, Amorphous Sediment 1+, Hyaline Casts Occasional 08/23/24 14:53: WBC 18.8 H D, RBC 4.92, Hgb 13.6, Hct 41.9, MCV 85.2, MCH 27.6, MCHC 32.5, RDW 14.5, Plt Count 457 H, MPV 10.3, Neut % (Auto) 84.2 H, Lymph % (Auto) 6.9 L, [place] % (Auto) 7.5, Eos % (Auto) 0.2, Baso % (Auto) 0.3, Neut # (Auto) 15.8 H, Lymph # (Auto) 1.3, [place] # (Auto) 1.4 H, Eos # (Auto) 0.0, Baso # (Auto) 0.1, Total Counted 100, Neutrophils % (Manual) 89 H, Lymphocytes % (Manual) 7 L, Monocytes % (Manual) 4, Platelet Estimate Slight increase, RBC Morphology Normal, Sodium 141, Potassium 4.0, Chloride 106, Carbon Dioxide 20 L, Anion Gap 19.0 H, BUN 59 H D, Creatinine 2.10 H, Estimated Creat Clear 21, Estimated GFR 22 L, Est GFR ( Amer) 27 L, Glucose 91, Calcium 9.0, Total Bilirubin 1.1, AST 50 H, ALT 24, Alkaline Phosphatase 111, Total Protein 7.7, Albumin 3.9, Globulin 3.8 H, Albumin/Globulin Ratio 1.0 L, TSH 2.90, Free T4 2.12 08/23/24 14:59: VBG pH 7.48 H, VBG pCO2 27.4 L, VBG pO2 62.6 H, VBG HCO3 20.0 L, VBG Total CO2 20.9 L, VBG O2 Saturation 93.1 H, VBG Base Excess -3.4 L, VBG Lactic Acid 4.0 H 08/23/24 14:53 08/23/24 14:53 Orders (Tests/Meds): ED MEDICATIONS Generic Name Dose Route Start Last Admin Trade Name Freq PRN Reason Stop Dose Admin Levofloxacin/Dextrose 750 mg in 150 mls @ 100 mls/hr 08/23/24 17:19 Levofloxacin 750mg/150ml Premix IV 08/23/24 18:48 ONCE ONE Lactated Ringer's 1,500 mls @ 750 mls/hr 08/23/24 17:27 Lactated Ringer's 1000 Ml Bag 30 ml/kg infuse over 2 hr (1500 ml) 08/23/24 19:26 IV .Q2H ONE ORDERS Category Date Time Status CT head/brain wo con Stat Cat Scan 08/23/24 14:19 Completed XR chest portable Stat Exams 08/23/24 14:19 Completed CBC w/Auto Diff [Complete Blood Count Auto Diff] Stat Lab 08/23/24 14:53 Completed CMP [Comprehensive Metabolic Panel] Stat Lab 08/23/24 14:53 Completed Free T4 (Free Thyroxine) Stat Lab 08/23/24 14:53 Completed TSH [Thyroid Stimulating Hormone] Stat Lab 08/23/24 14:53 Completed Urinalysis-Acute [Urinalysis and Microscopic] Stat Lab 08/23/24 14:25 Completed Blood Culture Stat Micro 08/23/24 17:19 Ordered VBG [Venous Blood Gas] Stat RT 08/23/24 14:59 Completed ECG Data Tracing #1: Irregular rhythm with rate of 140. No QTC prolongation, or evidence of acute ischemia. Significant artifact due to patient positioning and agitation. Medical Decision Narrative: In summary, this is an 84 y/o female presenting with AMS. Differential diagnosis includes but not limited to CVA, encephalopathy, electrolyte derrangements, UTI, PNA, among others. Given pt presentation and inablitiy to provide additional information, a broad infectious workup ordered in addition to CT head. I reviewed patient's labs which were remarkable for leukocytosis 18.8 (increased from 12 on 08/21/24), lactate 4, Cr 2.10. No evidence of acute cystitis on cath UA. CXR demonstrates LLL consolidation, suggesting pneumonia. At this time, pt care handed off to oncoming physician pending finalization of CT. <Latasha Kimble MD - Last Filed: 08/23/24 17:36> Vital Signs: 08/23/24 14:05 Temperature 98.3 F Temperature Source Oral Pulse Rate [Left] 88 Respiratory Rate 18 Blood Pressure [Right Arm] 146/89 H Blood Pressure Mean [Right Arm] 108 Blood Pressure Source [Right Arm] Automatic Cuff Blood Pressure Position [Right Arm] Sitting 02 Sat by Pulse Oximetry 98 Oxygen Delivery Method Room Air Nasal Cannula Oxygen Flow Rate (LPM) 2 Lab Data Lab Results 08/23/24 14:25: Urine Color Yellow, Urine Appearance Clear, Urine pH 5.5, Ur Specific [place] 1.015, Urine Protein Negative, Urine Glucose (UA) Negative, Urine Ketones Negative, Urine Blood Negative, Urine Nitrate Negative, Urine Bilirubin Negative, Urine Urobilinogen 0.2, Ur Leukocyte Esterase Negative, Urine RBC Occasional, Urine WBC Occasional, Ur Squamous Epith Cells 3-5, Amorphous Sediment 1+, Hyaline Casts Occasional 08/23/24 14:53: WBC 18.8 H D, RBC 4.92, Hgb 13.6, Hct 41.9, MCV 85.2, MCH 27.6, MCHC 32.5, RDW 14.5, Plt Count 457 H, MPV 10.3, Neut % (Auto) 84.2 H, Lymph % (Auto) 6.9 L, [place] % (Auto) 7.5, Eos % (Auto) 0.2, Baso % (Auto) 0.3, Neut # (Auto) 15.8 H, Lymph # (Auto) 1.3, [place] # (Auto) 1.4 H, Eos # (Auto) 0.0, Baso # (Auto) 0.1, Total Counted 100, Neutrophils % (Manual) 89 H, Lymphocytes % (Manual) 7 L, Monocytes % (Manual) 4, Platelet Estimate Slight increase, RBC Morphology Normal, Sodium 141, Potassium 4.0, Chloride 106, Carbon Dioxide 20 L, Anion Gap 19.0 H, BUN 59 H D, Creatinine 2.10 H, Estimated Creat Clear 21, Estimated GFR 22 L, Est GFR ( Amer) 27 L, Glucose 91, Calcium 9.0, Total Bilirubin 1.1, AST 50 H, ALT 24, Alkaline Phosphatase 111, Total Protein 7.7, Albumin 3.9, Globulin 3.8 H, Albumin/Globulin Ratio 1.0 L, TSH 2.90, Free T4 2.12 08/23/24 14:59: VBG pH 7.48 H, VBG pCO2 27.4 L, VBG pO2 62.6 H, VBG HCO3 20.0 L, VBG Total CO2 20.9 L, VBG O2 Saturation 93.1 H, VBG Base Excess -3.4 L, VBG Lactic Acid 4.0 H Orders (Tests/Meds): ED MEDICATIONS Generic Name Dose Route Start Last Admin Trade Name Freq PRN Reason Stop Dose Admin Levofloxacin/Dextrose 750 mg in 150 mls @ 100 mls/hr 08/23/24 17:19 Levofloxacin 750mg/150ml Premix IV 08/23/24 18:48 ONCE ONE Lactated Ringer's 1,500 mls @ 750 mls/hr 08/23/24 17:27 Lactated Ringer's 1000 Ml Bag 30 ml/kg infuse over 2 hr (1500 ml) 08/23/24 19:26 IV .Q2H ONE ORDERS Category Date Time Status CT head/brain wo con Stat Cat Scan 08/23/24 14:19 Completed XR chest portable Stat Exams 08/23/24 14:19 Completed CBC w/Auto Diff [Complete Blood Count Auto Diff] Stat Lab 08/23/24 14:53 Completed CMP [Comprehensive Metabolic Panel] Stat Lab 08/23/24 14:53 Completed Free T4 (Free Thyroxine) Stat Lab 08/23/24 14:53 Completed TSH [Thyroid Stimulating Hormone] Stat Lab 08/23/24 14:53 Completed Urinalysis-Acute [Urinalysis and Microscopic] Stat Lab 08/23/24 14:25 Completed Blood Culture Stat Micro 08/23/24 17:19 Ordered VBG [Venous Blood Gas] Stat RT 08/23/24 14:59 Completed Tissue Perfus/Sepsis Re-Eval Sepsis Re-Evaluation Performed: Yes Date Performed: 08/23/24 Time Performed: 17:34 Medical Decision Narrative: In summary, this is an 84 y/o female presenting with AMS. Differential diagnosis includes but not limited to CVA, encephalopathy, electrolyte derrangements, UTI, PNA, among others. Given pt presentation and inablitiy to provide additional information, a broad infectious workup ordered in addition to CT head. I reviewed patient's labs which were remarkable for leukocytosis 18.8 (increased from 12 on 08/21/24), lactate 4, Cr 2.10. No evidence of acute cystitis on cath UA. CXR demonstrates LLL consolidation, suggesting pneumonia. At this time, pt care handed off to oncoming physician pending finalization of CT. Reassessment this is Dr. Kimble I took over from Dr. Birmingham. CT scan of the patient's head was performed I personally interpreted which shows possible old area of a new infarct but no acute ischemic changes. She is nonfocal has a GCS of about 10 or 11 on my evaluation. We did do a core temperature on her which is 101 she is also tachycardic to 140 and tachypneic on my exam. She is altered and also mildly hypoxic requiring 2 L nasal cannula to get a oxygen saturations into the mid 90s. Chest x-ray was performed which I personally interpreted which shows a left lower lobe pneumonia. She is allergic to numerous medications including penicillins and cephalosporins therefore she was given IV Levaquin and given a bolus of fluids to treat sepsis. She is critically ill she is DNR. I discussed the case with Dr. Alessandro Watkins who agreed to accept patient for further evaluation and management Critical Care <Cleopatra Birmingham MD - Last Filed: 08/23/24 17:23> Critical Care Time Critical Care Time: No <Latasha Kimble MD - Last Filed: 08/23/24 17:36> Critical Care Time Critical Care Time: Yes Attestation: On 08/23/24, the high probability of a clinically significant, sudden or life threatening deterioration of the following system(s) required my full and direct attention, intervention and personal management. The time I documented below is in addition to time spent performing reported procedures but includes the following listed in this critical care notation. Total Time Total Critical Care Time: 35
[2024-08-23] MEDS: LACTATED RINGERS 1000ML 1,500 ML 750 ML IV (17:37)
[2024-08-23] MEDS: LEVOFLOXACIN/D5W 750 MG/150 ML 750 MG/150 ML PIGGYBACK 100 MG IV (17:38)
--- NOTE | 2024-08-23 17:39 | PC.NURSE ---
HS aware of admission
--- NOTE | 2024-08-23 17:58 | P.HP_ITS ---
History of Present Illness *Admission Date: 08/23/24 *Reason for visit:: Short of breath, confused *History of present illness: Ms. Retana is an 84-year-old female who presents from [facility] for increased confusion from baseline. She is reportedly alert with pleasantly confused at baseline. Able to feed herself and perform some ADLs. She is not speaking or communicating at this time. Last known normal was 08/19. Having some muscle twitches in her right upper extremity. Recently negative for flu or COVID but has become more weak. Has developed a wet cough. Hypoxic on arrival. Brought in by EMS from [facility] [place]. Patient unable to provide history or review of systems. EMS was called due to patient declining. Necessitating supplemental oxygen for sats above 90. Workup in the ER, patient found to be septic with what appears to be a pneumonia. Initiated on Levaquin. Medicine consulted for admission and further management. Patient is DNR per chart and discussion with family by the ER. It is unclear if she is a hospice patient. Will clarify this. At this time she has a GCS of 10. Is alert but not responding to verbal commands. Appears in moderate distress. Necessitating 6 L for sats of 92%. Remains tachypneic and tachycardic. Febrile to 101. PFSH [facility] Disclaimer: The information contained in this section may have been updated after the patient was seen, as this information can be updated by other users. Medical History Postural kyphosis, thoracic region Surgical History Previous back surgery Social History Smoking Status: Unknown if ever smoked alcohol intake: never current occupational status: unemployed Travel in the last 8 weeks: None Review of Systems Review of Systems Review of systems:: unable to obtain Meds Home Medications and Allergies New Prescriptions to Start Prescriptions: Allergies Allergy/AdvReac Type Severity Reaction Status Date / Time aspirin Allergy Unknown Verified 08/23/24 15:17 allergy reaction Cephalosporins Allergy Unknown Verified 08/23/24 15:17 allergy reaction clindamycin Allergy Unknown Verified 08/23/24 15:17 allergy reaction codeine Allergy Unknown Verified 08/23/24 15:17 allergy reaction meperidine (From Demerol) Allergy Unknown Verified 08/23/24 15:17 allergy reaction morphine Allergy Unknown Verified 08/23/24 15:17 allergy reaction Morpholine Analogues Allergy Unknown Verified 08/23/24 15:17 allergy reaction Penicillins Allergy Unknown Verified 08/23/24 15:17 allergy reaction Sulfa (Sulfonamide Allergy Unknown Verified 08/23/24 15:17 Antibiotics) allergy reaction oxycodone (From Percocet) AdvReac Unknown Verified 08/23/24 15:17 allergy reaction Exam Data for Last 24 hours Vital signs and Labs for Last 24 Hours: Temp Pulse Resp BP Pulse Ox O2 Del Method O2 Flow Rate 101.8 F H 125 H 18 147/59 H 89 L Nasal Cannula 3 08/23/24 17:40 08/23/24 17:31 08/23/24 14:05 08/23/24 17:31 08/23/24 17:40 08/23/24 17:40 08/23/24 17:40 Laboratory Results - last 24 hr 08/23/24 14:25: Urine Color Yellow, Urine Appearance Clear, Urine pH 5.5, Ur Specific [place] 1.015, Urine Protein Negative, Urine Glucose (UA) Negative, Urine Ketones Negative, Urine Blood Negative, Urine Nitrate Negative, Urine Bilirubin Negative, Urine Urobilinogen 0.2, Ur Leukocyte Esterase Negative, Urine RBC Occasional, Urine WBC Occasional, Ur Squamous Epith Cells 3-5, Amorphous Sediment 1+, Hyaline Casts Occasional 08/23/24 14:53: WBC 18.8 H D, RBC 4.92, Hgb 13.6, Hct 41.9, MCV 85.2, MCH 27.6, MCHC 32.5, RDW 14.5, Plt Count 457 H, MPV 10.3, Neut % (Auto) 84.2 H, Lymph % (Auto) 6.9 L, [place] % (Auto) 7.5, Eos % (Auto) 0.2, Baso % (Auto) 0.3, Neut # (Auto) 15.8 H, Lymph # (Auto) 1.3, [place] # (Auto) 1.4 H, Eos # (Auto) 0.0, Baso # (Auto) 0.1, Total Counted 100, Neutrophils % (Manual) 89 H, Lymphocytes % (Manual) 7 L, Monocytes % (Manual) 4, Platelet Estimate Slight increase, RBC Morphology Normal, Sodium 141, Potassium 4.0, Chloride 106, Carbon Dioxide 20 L, Anion Gap 19.0 H, BUN 59 H D, Creatinine 2.10 H, Estimated Creat Clear 21, Estimated GFR 22 L, Est GFR ( Amer) 27 L, Glucose 91, Calcium 9.0, Total Bilirubin 1.1, AST 50 H, ALT 24, Alkaline Phosphatase 111, Total Protein 7.7, Albumin 3.9, Globulin 3.8 H, Albumin/Globulin Ratio 1.0 L, TSH 2.90, Free T4 2.12 08/23/24 14:59: VBG pH 7.48 H, VBG pCO2 27.4 L, VBG pO2 62.6 H, VBG HCO3 20.0 L, VBG Total CO2 20.9 L, VBG O2 Saturation 93.1 H, VBG Base Excess -3.4 L, VBG Lactic Acid 4.0 H I & O for Last 24 hours: Intake & Output 08/20/24 08/21/24 08/22/24 08/23/24 23:59 23:59 23:59 23:59 Weight 64.41 kg Constitutional Constitutional: mild distress, thin, chronically ill appearing and disheveled *Routine HEENT Exam Head: Present normocephalic Eye: Present EOMI and PERRL ENT: Present mucous membranes moist *Routine Neck Exam Neck: Absent lymphadenopathy Routine Chest/Breast/Axilla Exam Chest wall: Absent tenderness *Routine Respiratory Exam Respiratory: Present accessory muscle use and crackles (Left lower lung field); Absent rhonchi or wheezes *Routine Cardiovascular Exam Cardiovascular: Present RRR *Routine Abdominal Exam Abdominal: Present soft and normoactive bowel sounds; Absent tenderness *Routine Rectal Exam Rectal:: deferred *Routine Genitalia Exam Genitalia:: deferred *Routine Extremities Exam Extremities: Absent cyanosis, clubbing or edema *Routine Skin Exam Skin: Present intact and warm; Absent rash Comments: Stage I pressure wound upper thoracic back overlying spinal hardware *Routine Neurological Exam Neurological: Present alert and altered mental status; Absent moving all extremities Comments: Nonverbal, spontaneous eye opening, not responding to verbal question; GCS 10; E4, V2, M4 Assessment and Plan *Assessment and plan (1) Severe sepsis: Status: Acute Category: Medical Code(s): A41.9 - Sepsis, unspecified organism; R65.20 - Severe sepsis without septic shock (2) Pneumonia: Status: Acute Category: Medical Code(s): J18.9 - Pneumonia, unspecified organism (3) Acute encephalopathy: Status: Acute Category: Medical Code(s): G93.40 - Encephalopathy, unspecified (4) Acute hypoxic respiratory failure: Status: Acute Category: Medical Code(s): J96.01 - Acute respiratory failure with hypoxia (5) A-fib: Status: Acute Qualifiers: Atrial fibrillation type: paroxysmal Qualified Code(s): I48.0 - Paroxysmal atrial fibrillation Category: Medical Code(s): I48.91 - Unspecified atrial fibrillation (6) Postural kyphosis, thoracic region: Status: Acute Category: Medical Code(s): M40.04 - Postural kyphosis, thoracic region (7) Severe protein-calorie malnutrition: Status: Acute Category: Medical Code(s): E43 - Unspecified severe protein-calorie malnutrition Plan Ms. Retana is an 84-year-old female with multiple comorbidities and severe thoracic kyphosis who presents from [place] for altered mental status and hypoxia. Found to be septic with pneumonia and respiratory alkalosis. Discussed case with ER physician, request admission for treatment and further management of respiratory failure and encephalopathy. I agreed to admit. PSI/port score of 153. Class V risk. Approximately 30% mortality risk. Seriously ill. Necessitating inpatient care. Problems addressed as follows: Severe sepsis Acute hypoxemic respiratory failure Respiratory alkalosis - White count elevated 18.8. Hemoglobin normal at 13.6. Repeat CBC, CMP, magnesium ordered for the morning. -Goal sats greater 90%, currently on 6 nasal cannula -VBG with pH of 7.48, pCO2 27. Consistent with tachypnea and respiratory alkalosis. Lactic acid 4 on VBG. Repeat lactic pending -Initiated on Levaquin 750 mg once due to patient's multiple antibiotic allergies. Will dose Levaquin 750 mg every 48 hours based on creatinine clearance -Sputum and blood cultures pending. -Urinalysis fairly unremarkable. -Per my review of chest x-ray, severe kyphosis. Has airspace disease in left lower lung field. -Status post sepsis bolus 1500 cc LR x 1. Will hold on maintenance fluids, monitor from more fluid needs in the morning Encephalopathy -Likely metabolic due to acid-base disturbance and sepsis above. Monitor for improvement with treatment of underlying infection CKD 4 -Creatinine and BUN at baseline at 55 and 2.1. Received IV fluids in the ER. Monitor for improvement with repeat labs in the morning. Caution with nephrotoxins. Renally dose medications Reportedly has history of A-fib. Awaiting med rec for home meds for hypertension, A-fib, heart failure, memory. Question on patient's chart about possibly being on hospice. Will have case management assisting clarify. Will continue further goals of care discussions with family DNR Lovenox 30 mg daily subcu N.p.o. pending improvement in mentation
--- NOTE | 2024-08-23 17:58 | ECG_ITS ---
APPROVED REPORT Exam: Resting ECG HR:126 bpm ECG Measurements Heart Rate 126 AXES LA 221 P 12 QRSd 131 QRS -56 QT 361 T 60 QTc 436 Conclusion SINUS TACHYCARDIA WITH FIRST DEGREE AV BLOCK INTRAVENTRICULAR CONDUCTION DELAY [130+ ms QRS DURATION] VOLTAGE CRITERIA FOR LVH [MEETS CRITERIA IN ONE OF: R(aVL), S(V1), R(V5), R(V5/V6)+S(V1)] INFERIOR MYOCARDIAL INFARCTION , PROBABLY OLD [40+ ms Q WAVE AND/OR ST/T ABNORMALITY IN II/aVF] ANTEROSEPTAL MYOCARDIAL INFARCTION , PROBABLY OLD [40+ ms Q WAVE IN V1-V4] ABNORMAL ECG UNCONFIRMED REPORT Electronically signed by : Piter Mcpherson MD 08/25/2024 08:31:41
--- NOTE | 2024-08-23 18:04 | PC.NURSE ---
I SPOKE WITH DAUGHTER REGARDING PT CODE STATUS. SIGNED AND ON THE CHART
[2024-08-23 18:12] LABS: Coronavirus 19, PCR Not Detected (NotDetected); Human Rhinovirus Not Detected (NotDetected); Influenza B, PCR Not Detected (NotDetected); Respiratory Syncytial Virus Not Detected (NotDetected)
[2024-08-23] MEDS: ACETAMINOPHEN 1,000MG/100ML VIAL 1000 MG IV (18:12)
[2024-08-23 19:06] LABS: Reflex Lactic Add Lactic Reflex
--- NOTE | 2024-08-23 20:01 | PC.NURSE ---
Addendum entered by Quiana Chaves RN 08/23/24 20:06: Chloe from Hospice stated the patient was admitted to hospice on 03/18 then Discharged from 04/02 due to prolonged chronic disease Original Note: Spoke to [facility], stated they would call me back within 15min to let me know if the patient was still with them or not. According to Anisa with [facility] the patient was dropped from there services this summer after the patient got better.
[2024-08-23 20:02] LABS: Influenza A, PCR Detected (NotDetected)
[2024-08-23 20:03] LABS: Lactic Acid Follow Up (RFLX 1) 3.3 mmol/L (0.7-2.1)
[2024-08-23] MEDS: LEVALBUTEROL 1.25MG/3ML NEB 1.25 MG IH (20:40)
[2024-08-23] MEDS: ENOXAPARIN 30MG/0.3ML SYRINGE 30 MG SUBCUT (20:52)
[2024-08-23 21:43] LABS: Reflex Lactic (2 hrs) Add Lactic Reflex
[2024-08-23 22:24] LABS: Lactic Acid Follow up (RFLX 2) 1.8 mmol/L (0.7-2.1)
[2024-08-24] VITALS (15 sets, daily range): BP systolic 99–170; BP diastolic 64–88; PULSE 90–126; RESP 18–40; TEMP 36.6–36.8; O2SAT 90–95; BMI 24.5
--- NOTE | 2024-08-24 00:53 | EXP.EVENT.NO ---
Patient's labs show that the patient is positive for flu A. Unable to determine when patient's first symptoms occurred. Patient is relatively stable at this time. Not sure that Tamiflu would do any good and may possibly cause harm so will not start Tamiflu at this time.
[2024-08-24] MEDS: RINGERS SOLUTION,LACTATED 500 ML 250 ML IV (04:15)
[2024-08-24] MEDS: ACETAMINOPHEN 1,000MG/100ML VIAL 1000 MG IV ×2 (04:16→16:03)
--- NOTE | 2024-08-24 05:12 | PC.NURSE ---
Patient has been nonverbal and does not follow commands. She has been able to rest but very little and has remind restless most of the night. Patient has a weak cough but it is non productive. Family did call and get an updates and stated they couldnt come and see her cause of the snow but to call if we need anything.
[2024-08-24] MEDS: LACTATED RINGERS 1000ML 1,000 ML 250 ML IV (06:41)
--- NOTE | 2024-08-24 06:45 | PC.NURSE ---
Patient had not voided since midnight. Patient was bladder scanned 126ml was in her bladder. Sachin was contacted and we continued the bolus of LR for another 1000ml at 250ml an hour for a total of 4hrs.
[2024-08-24] MEDS: LEVALBUTEROL 1.25MG/3ML NEB 1.25 MG IH ×3 (07:04→18:44)
--- NOTE | 2024-08-24 07:31 | PC.NURSE ---
DURING MY ASSESSMENT THIS AM PT WAS UNABLE TO FOLLOW COMMANDS AND WAS RESISTIVE TO CARE. PT DID TRY TO BITE AND KICK THIS RNRuddy MEJIA AT BEDSIDE DURING ASSESSMENT. PT REMAINS CONFUSED AND UNABLE TO SAFELY FOLLOW COMMAND TO TAKE PO MEDICATION.
--- NOTE | 2024-08-24 08:12 | SW/DCPLANNER ---
Addendum entered by [facility] 08/28/24 11:57: I have updated AD w/ Hospice and [facility] that patient will discharge today. Addendum entered by [facility] 08/28/24 08:50: HAYLEE boucher/ [facility] evaluated patient at bedside yesterday afternoon. Per MD, Hospice, patient's family and [facility] the plan for this patient is to return to [facility] level of care w/ Hospice services. Per MD patient will discharge today. Addendum entered by [facility] 08/27/24 13:37: Hafsa boucher/ [facility] is currently reviewing patient information. Addendum entered by [facility] 08/27/24 11:47: Per Dr Watkins patient's family ([place]) is agreeable to Hospice services at this time. I will fax information to Olivia boucher/ [facility]. Addendum entered by [facility] 08/27/24 08:35: Per Dr Eaton request I am attempting to contact family members (J[place]) this AM regarding Hospice services for this patient. Original Note: Per Maggy w/ [facility] this patient is currently [facility] level of care. Maggy also stated that patient is not currently established w/ Hospice services. I will continue to follow up citlaly/ Maggy until patient is medically stable for discharge. Discharge date is unknown at this time.
--- NOTE | 2024-08-24 08:39 | HMH.PHAINT1 ---
Pharmacy Intervention Comments: VERIFIED WITH OUTPATIENT PHARMACY AND CONFIRMED WITH ASSISTED [facility]IVING [facility]AC[facility], PATIENT IS NONVERBAL.
[2024-08-24 08:46] LABS: Basophils % 0.3 % (0.1-2.0); Eosinophils % 0.3 % (0.1-12.0); Hematocrit 37.1 % (37.0-47.0); Lymphocytes # 0.9 K/mm3 (0.7-4.5); Lymphocytes % 7.7 % (10-50); Mean Corpuscular HGB Conc 32.9 g/dL (31.8-35.4); Mean Corpuscular Hemoglobin 27.7 pg (27.0-31.2); Mean Corpuscular Volume 84.3 fl (81-99); Monocytes # 0.9 K/mm3 (0.1-1.0); Monocytes % 7.7 % (1.7-9.3); Neutrophils # 9.5 K/mm3 (1.8-7.8); Neutrophils % 82.5 % (37.0-80.0); Platelet Count 315 K/mm3 (142-424); Red Cell Distribution Width 14.3 % (11.5-17.5); White Blood Count 11.5 K/mm3 (4.8-10.8)
[2024-08-24 08:54] LABS: Alanine Aminotransferase 15 U/L (12-78); Albumin Level 3.2 g/dl (3.5-5.0); Albumin/Globulin Ratio 1.1 (1.1-1.8); Alkaline Phosphatase 89 U/L (38-126); Anion Gap 13.3 mEq/L (5-15); Aspartate Amino Transferase 38 U/L (14-36); Bilirubin,Total 0.7 mg/dl (0.2-1.3); Blood Urea Nitrogen 46 mg/dl (7-17); Calcium 8.6 mg/dl (8.4-10.2); Carbon Dioxide 25 mmol/L (22.0-30.0); Chloride 108 mmol/L (98-107); Creatinine Clearance Estimated 23 mL/min (50-200); Estimated Glomerular Filt Rate 27 ml/min (>60); GFR (African American) 33 ML/MIN (>60); Glucose 78 mg/dl (74-100); Potassium 3.3 mmoL/L (3.5-5.1); Sodium 143 mmol/L (136-145); Total Protein,Serum 6.2 g/dl (6.3-8.2)
[2024-08-24 09:10] LABS: Magnesium 2.1 mg/dl (1.6-2.3)
[2024-08-24 09:19] LABS: Hemoglobin 12.2 g/dL (12.2-16.2)
[2024-08-24] MEDS: METOPROLOL TARTRATE 5MG/5ML VIAL 5 MG IV ×2 (10:45→17:20)
[2024-08-24] MEDS: OSELTAMIVIR PHOSPHATE 6MG/ML ORAL SUSP 60ML 30 MG PO (10:58)
--- NOTE | 2024-08-24 11:49 | DIET.NUTRFU ---
Addendum entered by Nesha Zuniga RD, LD 08/24/24 11:59: Based on change in mental status, mobility status and diet tolerance she triggers for SPCM, provider noted Original Note: called [facility]- verified diet was regular with thin was able to feed self and wt was stable. Nursing reported this morning in rounds prabha unable to follow commands to take anything by mouth. Some of her meds were adjust IVF. Mila NPO, will continue to monitor nutritional status/diet tolerance. No IVF at this time will continue to monitor hydration status, labs were reviewed with Na at 143, K 3.3L, BUN 46/1.8 (improved from 59/2.1).
--- NOTE | 2024-08-24 14:40 | P.PN_ITS ---
Subjective *Date: 08/24/24 *Time: 18:55 Interval history: Still confused today but having some response to staff. Starting to take oral medications. Weaning oxygen. Family at bedside this afternoon. Patient still quite encephalopathic, noted to have right upper extremity weakness Medical Exam Vital signs and Labs for Last 24 Hours: Vital Signs Temp Pulse Pulse Resp BP BP Pulse Ox 08/24/24 14:00 102 H 20 99/77 L 95 08/24/24 13:00 08/24/24 12:59 101 H 08/24/24 12:59 101 H 08/24/24 12:59 93 L 08/24/24 12:00 97 H 18 119/64 92 L 08/24/24 12:00 100 H 08/24/24 11:00 08/24/24 10:00 116 H 18 170/88 H 92 L 08/24/24 09:00 08/24/24 08:00 104 H 18 165/85 H 95 08/24/24 08:00 100 H 08/24/24 08:00 98.1 F 08/24/24 07:23 95 08/24/24 07:05 119 H 08/24/24 06:53 08/24/24 06:00 118 H 24 144/80 H 94 L 08/24/24 05:00 08/24/24 04:00 110 H 08/24/24 04:00 97.8 F 08/24/24 04:00 126 H 26 H 132/77 92 L 08/24/24 03:41 08/24/24 03:00 08/24/24 02:00 96 H 26 H 152/80 H 93 L 08/24/24 01:00 08/24/24 00:00 120 H 26 H 125/70 94 L 08/24/24 00:00 90 08/24/24 00:00 97.8 F 08/23/24 23:00 08/23/24 22:23 129 H 20 08/23/24 22:00 98 H 26 H 105/71 L 94 L 08/23/24 21:00 08/23/24 20:40 128 H 08/23/24 20:40 129 H 08/23/24 20:40 93 L 08/23/24 20:34 08/23/24 20:00 90 08/23/24 20:00 97.6 F 08/23/24 19:28 98.7 F 137 H 30 H 156/90 H 92 L 08/23/24 19:00 08/23/24 18:58 99.0 F 08/23/24 18:08 101.8 F H 142 H 27 H 156/90 H 08/23/24 18:01 124 H 35 H 156/90 H 90 L 08/23/24 17:40 101.8 F H 89 L 08/23/24 17:31 125 H 147/59 H 90 L 08/23/24 17:25 158/68 H 77 L O2 Del Method O2 Flow Rate 08/24/24 14:00 Nasal Cannula 5 08/24/24 13:00 Nasal Cannula 5 08/24/24 12:59 08/24/24 12:59 08/24/24 12:59 Nasal Cannula 5 08/24/24 12:00 Nasal Cannula 5 08/24/24 12:00 08/24/24 11:00 Nasal Cannula 5 08/24/24 10:00 Nasal Cannula 5 08/24/24 09:00 Nasal Cannula 5 08/24/24 08:00 Nasal Cannula 5 08/24/24 08:00 08/24/24 08:00 08/24/24 07:23 Nasal Cannula 6 08/24/24 07:05 08/24/24 06:53 Nasal Cannula 6 08/24/24 06:00 Nasal Cannula 6 08/24/24 05:00 Nasal Cannula 6 08/24/24 04:00 08/24/24 04:00 08/24/24 04:00 Nasal Cannula 6 08/24/24 03:41 Nasal Cannula 6 08/24/24 03:00 Nasal Cannula 6 08/24/24 02:00 Nasal Cannula 6 08/24/24 01:00 Nasal Cannula 6 08/24/24 00:00 Nasal Cannula 6 08/24/24 00:00 08/24/24 00:00 08/23/24 23:00 Nasal Cannula 6 08/23/24 22:23 08/23/24 22:00 Nasal Cannula 6 08/23/24 21:00 Nasal Cannula 6 08/23/24 20:40 08/23/24 20:40 08/23/24 20:40 Nasal Cannula 6 08/23/24 20:34 Nasal Cannula 6 08/23/24 20:00 08/23/24 20:00 08/23/24 19:28 Nasal Cannula 08/23/24 19:00 Nasal Cannula 6 08/23/24 18:58 08/23/24 18:08 Nasal Cannula 6 08/23/24 18:01 08/23/24 17:40 Nasal Cannula 3 08/23/24 17:31 08/23/24 17:25 Intake and Output 08/23/24 08/24/24 08/24/24 23:59 07:59 15:59 Intake Total 0 / 705 705 / 705 Output Total 0 / 0 Balance 0 / 705 705 / 705 Intake: Intake, Oral Amount 0 / 0 Intake, Total IV Amount 705 / 705 Lactated Ringers 1000ML 1,000 705 / 705 ml @ 250 mls/hr IV .Q4H ONE Rx# :[id number] Output: Output, Urine Amount 0 / 0 Other: Number of Unmeasured Voids 1 1 Weight 57.72 kg 60.555 kg 60.55 kg Patient Weight 08/24/24 23:59 Weight 60.55 kg Laboratory Results - last 24 hr 08/23/24 14:11: SARS-CoV-2 (PCR) Not detected, Influenza Type A (PCR) Detected A , Influenza Type B (PCR) Not detected, RSV (PCR) Not detected, Rhinovirus (PCR) Not detected 08/23/24 14:25: Urine RBC Occasional, Urine WBC Occasional, Ur Squamous Epith Cells 3-5, Amorphous Sediment 1+, Hyaline Casts Occasional 08/23/24 14:53: WBC 18.8 H D, RBC 4.92, Hgb 13.6, Hct 41.9, MCV 85.2, MCH 27.6, MCHC 32.5, RDW 14.5, Plt Count 457 H, MPV 10.3, Neut % (Auto) 84.2 H, Lymph % (Auto) 6.9 L, Bandera % (Auto) 7.5, Eos % (Auto) 0.2, Baso % (Auto) 0.3, Neut # (Auto) 15.8 H, Lymph # (Auto) 1.3, Bandera # (Auto) 1.4 H, Eos # (Auto) 0.0, Baso # (Auto) 0.1, Total Counted 100, Neutrophils % (Manual) 89 H, Lymphocytes % (Manual) 7 L, Monocytes % (Manual) 4, Platelet Estimate Slight increase, RBC Morphology Normal, Sodium 141, Potassium 4.0, Chloride 106, Carbon Dioxide 20 L, Anion Gap 19.0 H, BUN 59 H D, Creatinine 2.10 H, Estimated Creat Clear 21, Estimated GFR 22 L, Est GFR ( Amer) 27 L, Glucose 91, Calcium 9.0, Total Bilirubin 1.1, AST 50 H, ALT 24, Alkaline Phosphatase 111, Total Protein 7.7, Albumin 3.9, Globulin 3.8 H, Albumin/Globulin Ratio 1.0 L, TSH 2.90, Free T4 2.12 08/23/24 14:59: VBG pH 7.48 H, VBG pCO2 27.4 L, VBG pO2 62.6 H, VBG HCO3 20.0 L, VBG Total CO2 20.9 L, VBG O2 Saturation 93.1 H, VBG Base Excess -3.4 L, VBG Lactic Acid 4.0 H 08/23/24 19:30: Lactate 3.3 H 08/23/24 22:00: Lactate 1.8 08/24/24 08:40: WBC 11.5 H D, RBC 4.40, Hgb 12.2 D, Hct 37.1, MCV 84.3, MCH 27.7, MCHC 32.9, RDW 14.3, Plt Count 315 D, MPV 10.0, Neut % (Auto) 82.5 H, Lymph % (Auto) 7.7 L, Bandera % (Auto) 7.7, Eos % (Auto) 0.3, Baso % (Auto) 0.3, Neut # (Auto) 9.5 H, Lymph # (Auto) 0.9, Bandera # (Auto) 0.9, Eos # (Auto) 0.0, Baso # (Auto) 0.0, Sodium 143, Potassium 3.3 L, Chloride 108 H, Carbon Dioxide 25, Anion Gap 13.3, BUN 46 H, Creatinine 1.80 H, Estimated Creat Clear 23, Estimated GFR 27 L, Est GFR ( Amer) 33 L D, Glucose 78, Calcium 8.6, M agnesium 2.1, Total Bilirubin 0.7, AST 38 H, ALT 15 D, Alkaline Phosphatase 89, Total Protein 6.2 L, Albumin 3.2 L D, Globulin 3.0, Albumin/Globulin Ratio 1.1 I & O for Labs for Last 24 Hours: Intake & Output 08/21/24 08/22/24 08/23/24 08/24/24 23:59 23:59 23:59 23:59 Intake Total 705 / 705 Output Total 0 / 0 Balance 705 / 705 Weight 57.72 kg 60.55 kg Microbiology Reports for the Last 24 Hours: Microbiology 08/24/24 04:02 Sputum - Nasotracheal Suction Gram Stain - Final Constitutional: Present mild distress, thin, chronically ill appearing and agitated Head: Present atraumatic and normocephalic ENT: Present normal exam Comment:: Does not make eye contact when spoken to Respiratory: Present prolonged expiratory phase, crackles (Left lower lung field) and normal respiratory effort; Absent rhonchi or wheezes Comment:: Severe thoracic kyphosis, chin sits on chest Cardiac: Present Tachycardia Comment:: Irregularly irregular GI: Present soft and normal bowel sounds; Absent distention or tenderness (female): Present normal external exam Extremities: Present normal inspection and full ROM; Absent edema Comment:: Sarcopenia, not moving right upper EXTR Skin: Present intact; Absent erythema Comment:: Stage I pressure wound on back overlying hardware from her vertebral rods Neuro: Present alert Comment:: Not moving right upper extremity, moving remainder of extremities. Not following commands. Will take oral medications intermittently. Assessment and Plan *Assessment and plan (1) Severe sepsis: Status: Acute Category: Medical Code(s): A41.9 - Sepsis, unspecified organism; R65.20 - Severe sepsis without septic shock (2) Pneumonia: Status: Acute Category: Medical Code(s): J18.9 - Pneumonia, unspecified organism (3) Acute encephalopathy: Status: Acute Category: Medical Code(s): G93.40 - Encephalopathy, unspecified (4) CVA (cerebral vascular accident): Status: Acute Category: Medical Code(s): I63.9 - Cerebral infarction, unspecified (5) Acute hypoxic respiratory failure: Status: Acute Category: Medical Code(s): J96.01 - Acute respiratory failure with hypoxia (6) A-fib: Status: Acute Qualifiers: Atrial fibrillation type: paroxysmal Qualified Code(s): I48.0 - Paroxysmal atrial fibrillation Category: Medical Code(s): I48.91 - Unspecified atrial fibrillation (7) Postural kyphosis, thoracic region: Status: Acute Category: Medical Code(s): M40.04 - Postural kyphosis, thoracic region (8) Severe protein-calorie malnutrition: Status: Acute Category: Medical Code(s): E43 - Unspecified severe protein-calorie malnutrition Plan Ms. Retana is an 84-year-old female with multiple comorbidities and severe thoracic kyphosis who presents from [facility] for altered mental status and hypoxia. Found to be septic with pneumonia and respiratory alkalosis. D iscussed case with ER physician, request admission for treatment and further management of respiratory failure and encephalopathy. I agreed to admit. PSI/port score of 153. Class V risk. Approximately 30% mortality risk. Seriously ill. Necessitating inpatient care. CT read finally came back showing stroke. Problems addressed as follows: Severe sepsis Acute hypoxemic respiratory failure Respiratory alkalosis - White count improved at 11. -Goal sats greater 90%, currently on 3 nasal cannula -Continue Levaquin 750 mg every 48 hours based on creatinine clearance. Initiated on Tamiflu as her respiratory panel came back flu positive. Continuing 30 mg daily. - Sputum and blood cultures pending. -Urinalysis fairly unremarkable. Encephalopathy Subacute stroke -Concern for encephalopathy due to metabolic disorder, sepsis, flu versus subacute finding on CT of head per my review that shows edema consistent with stroke. Radiology confirms subacute stroke on CT. Patient has allergy to a spirin, initiate Plavix 75 mg daily for 21 days. Not moving her right upper extremity. Will have therapy evaluate and work with patient during admission. Further goals of care discussion pending patient's progress and response to treatment for flu over the next couple days. CKD 4 - Kidney function at baseline with BUN 46, creatinine 1.8. Making good urine. Potassium low at 3.3, replacing per protocol. Starting to tolerate p.o. meds today. Repeat CBC, CMP, magnesium ordered for the morning -Renally dose meds, caution with nephrotoxic Reportedly has history of A-fib/CHF: Continue isosorbide mononitrate 30 mg daily, metoprolol succinate 25 mg twice daily Has previously been on hospice. In the setting of new stroke, will continue to discuss goals of care with family DNR Lovenox 30 mg daily subcu
--- NOTE | 2024-08-24 14:41 | EXP.EVENT.NO ---
Advance care planning note: Active diagnosis: Thoracic kyphosis, vertebral rods in back, progressive debility, A-fib, hyper, sleep disorder, chronic pain, new subacute stroke, sepsis, pneumonia, flu, respiratory failure The patient's active diagnoses are of sufficient risk that focused discussion on advanced care planning is indicated in order to allow the patient to thoughtfully consider personal goals of care; and, if situations arise that prevent the ability to personally give input, to ensure appropriate representation of their personal desires through documentation or informed surrogate decision makers. Discussion: Persons present and participating in discussion: Multiple discussions with daughter today 1 over the phone and 1 in person. Discussion: Extensive discussion about patient's progressive decline, previous episodes necessitating hospice. Discussed goals of care. In current state, strong concern the patient has had a recurrent stroke given her findings on CT and lack of use of right arm along with encephalopathy and change in orientation and interaction with staff. Daughter has no desire to pursue feeding tube if patient unable to tolerate p.o. intake. Would like to focus on treating the acute illness to see if patient gets better. If does not respond however or improve, interested in considering hospice. Would like to see outpatient does over the next couple days before making decision for consult. Strong concern for patient declining. Seriously ill. Time spent: Total time spent [id number] in education and discussion directly related to advance care plannin Aureliano Watkins 08/24/2024
[2024-08-24] MEDS: TRAMADOL 50MG TABLET 50 MG PO (16:54)
--- NOTE | 2024-08-24 17:47 | PC.NURSE ---
PT IS DOING FAIR THIS EVENING. VSS. HEART RATE IS TACHY. PRN IV MEDS GIVEN. BETTER ABLE TOLERATED PO MEDICATION. PAIN AND FEVER MEDS GIVEN PER OCT.
--- NOTE | 2024-08-24 20:25 | PC.NURSE ---
Called [facility] over Metoprolol Succ dose, [place] informed RN that our pharmacy stated we could crush this medication. Marcela with [facility] stated that we were never allowed to crush this medication. [employer] infomed of this. He stated he was okay with that and they could change it tomorrow and we would do the PRN metoprolol IV if needed. Currently HR is 98. IV bolus of LR 250ml over 2hrs was also ordered.
[2024-08-24] MEDS: ENOXAPARIN 30MG/0.3ML SYRINGE 30 MG SUBCUT (20:28)
[2024-08-24] MEDS: QUETIAPINE 25MG TABLET 25 MG PO (20:28)
[2024-08-24] MEDS: LACTATED RINGERS 1000ML 250 ML 125 ML IV (20:32)
[2024-08-25] VITALS (13 sets, daily range): BP systolic 151–171; BP diastolic 70–84; PULSE 90–127; RESP 20–28; TEMP 36.7–37.4; O2SAT 93–94; BMI 23.8
--- NOTE | 2024-08-25 00:28 | ECG_ITS ---
APPROVED REPORT Exam: Resting ECG HR:111 bpm ECG Measurements Heart Rate 111 AXES NE 202 P -36 QRSd 146 QRS -52 QT 362 T 52 QTc 428 Conclusion SINUS TACHYCARDIA RIGHT BUNDLE BRANCH BLOCK [120+ ms QRS DURATION, UPRIGHT V1, 40+ ms S IN I/aVL/V4/V5/V6] POSSIBLE LEFT VENTRICULAR HYPERTROPHY [VOLTAGE CRITERIA PLUS LAE OR QRS WIDENING] POSSIBLE ANTERIOR MYOCARDIAL INFARCTION , OF INDETERMINATE AGE [30 ms Q WAVE IN V3/V4, OR R < 0.2 mV IN V4] INFERIOR MYOCARDIAL INFARCTION , PROBABLY OLD [40+ ms Q WAVE AND/OR ST/T ABNORMALITY IN II/aVF] ABNORMAL ECG UNCONFIRMED REPORT Electronically signed by : Piter Mcpherson MD 08/25/2024 08:30:27
[2024-08-25] MEDS: LEVALBUTEROL 1.25MG/3ML NEB 1.25 MG IH ×5 (00:39→23:19)
[2024-08-25] MEDS: ACETAMINOPHEN 1,000MG/100ML VIAL 1000 MG IV (00:59)
[2024-08-25] MEDS: METOPROLOL TARTRATE 5MG/5ML VIAL 5 MG IV ×2 (01:04→08:09)
--- NOTE | 2024-08-25 01:13 | PC.NURSE ---
HR for Metoprolol was 140, After medication HR back down to 111
[2024-08-25] MEDS: TRAMADOL 50MG TABLET 50 MG PO ×2 (03:55→11:32)
[2024-08-25] MEDS: METOPROLOL SUCCINATE XL 25MG TABLET 25 MG PO (04:05)
--- NOTE | 2024-08-25 05:21 | PC.NURSE ---
Patient has had a decent night. Is defiantly more alert and talkative tonight. She would state she was thirsty and hungry. She took her pills very well with apple sauce. Patient has had pain medication a couple times due to being extremely restless. Each time medication was give the patient would rest better. Patient heart rate has been all over the place. anywhere from 80-140s. When patient sustained over 110 medication was given and heart rate would come back down to below 110. Patient linen were changed and jagjit care was preformed.
[2024-08-25 07:05] LABS: Basophils # 0.1 K/mm3 (0-0.2); Basophils % 0.3 % (0.1-2.0); Eosinophils % 0.1 % (0.1-12.0); Hematocrit 38.7 % (37.0-47.0); Hemoglobin 12.6 g/dL (12.2-16.2); Lymphocytes % 6.4 % (10-50); Mean Corpuscular HGB Conc 32.6 g/dL (31.8-35.4); Mean Corpuscular Hemoglobin 27.6 pg (27.0-31.2); Mean Corpuscular Volume 84.9 fl (81-99); Mean Platelet Volume 9.9 fl (7.4-10.4); Monocytes % 6.4 % (1.7-9.3); Neutrophils # 13.5 K/mm3 (1.8-7.8); Neutrophils % 84.5 % (37.0-80.0); Platelet Count 383 K/mm3 (142-424); Red Blood Count 4.56 M/mm3 (4.20-5.40); Red Cell Distribution Width 14.5 % (11.5-17.5)
[2024-08-25 07:14] LABS: MANUAL DIFFERENTIAL MANUAL DIFFERENTIAL (MANUAL DIFF)
[2024-08-25 07:31] LABS: Chloride 111 mmol/L (98-107)
[2024-08-25 07:32] LABS: Albumin Level 3.3 g/dl (3.5-5.0); Potassium 3.3 mmoL/L (3.5-5.1); Sodium 143 mmol/L (136-145)
[2024-08-25 07:34] LABS: Anion Gap 13.3 mEq/L (5-15); Blood Urea Nitrogen 36 mg/dl (7-17); Carbon Dioxide 22 mmol/L (22.0-30.0); Creatinine Clearance Estimated 25 mL/min (50-200); Estimated Glomerular Filt Rate 31 ml/min (>60); GFR (African American) 37 ML/MIN (>60)
[2024-08-25 07:35] LABS: Alanine Aminotransferase 18 U/L (12-78); Albumin/Globulin Ratio 1.1 (1.1-1.8); Alkaline Phosphatase 103 U/L (38-126); Aspartate Amino Transferase 39 U/L (14-36); Bilirubin,Total 0.7 mg/dl (0.2-1.3); Calcium 8.6 mg/dl (8.4-10.2); Globulin 3.1 g/dL (1.3-3.2); Glucose 96 mg/dl (74-100); Magnesium 2.1 mg/dl (1.6-2.3); Total Protein,Serum 6.4 g/dl (6.3-8.2)
[2024-08-25 07:58] LABS: Lymphocytes % 6 % (10-50); Monocytes % 4 % (2-9); Neutrophils % 90 % (42-76); Platelet Estimate Normal; RBC Morphology Normal; Total Cells Counted 100
[2024-08-25] MEDS: ISOSORBIDE MONO 30MG TAB.ER.24H 30 MG PO (08:39)
[2024-08-25] MEDS: METOPROLOL SUCCINATE XL 50MG TABLET 50 MG PO ×2 (08:40→21:33)
[2024-08-25] MEDS: CLOPIDOGREL 75MG TAB 75 MG PO (08:40)
[2024-08-25] MEDS: KCl 10mEq/100ml 100 ML 100 MEQ IV ×2 (08:41→10:00)
[2024-08-25] MEDS: OSELTAMIVIR PHOSPHATE 6MG/ML ORAL SUSP 60ML 30 MG PO (08:43)
[2024-08-25] MEDS: PRAMIPEXOLE 0.25MG TAB 0.5 MG PO (10:00)
[2024-08-25] MEDS: POTASSIUM CHLORIDE 10 MEQ, LIDOCAINE HCL/PF 3 ML in 0.9 % SODIUM CHLORIDE 100 ML 105 MEQ IV (11:31)
[2024-08-25] MEDS: MORPHINE 2MG/ML SYRINGE 2 MG IV (12:46)
--- NOTE | 2024-08-25 17:06 | P.PN_ITS ---
Subjective *Date: 08/25/24 *Time: 17:06 Interval history: Patient more interactive on exam today. Knows her name and response to verbal commands. Unable to move right arm. Stable on 3 L. Afebrile. Tolerating p.o. meds. Will advance diet today. Medical Exam Vital signs and Labs for Last 24 Hours: Vital Signs Temp Pulse Pulse Resp BP Pulse Ox O2 Del Method 08/25/24 16:00 98.2 F 94 H 22 161/84 H 94 L Nasal Cannula 08/25/24 15:00 Room Air 08/25/24 13:00 Nasal Cannula 08/25/24 12:00 98.1 F 97 H 20 163/80 H 93 L 08/25/24 12:00 100 H 08/25/24 11:20 94 H 08/25/24 11:20 90 08/25/24 11:20 94 L Nasal Cannula 08/25/24 11:00 Nasal Cannula 08/25/24 09:00 Nasal Cannula 08/25/24 08:00 110 H 08/25/24 08:00 Nasal Cannula 08/25/24 08:00 99.3 F 98 H 20 171/81 H 93 L 08/25/24 07:06 124 H 08/25/24 07:06 118 H 08/25/24 07:06 94 L Nasal Cannula 08/25/24 06:56 Nasal Cannula 08/25/24 05:00 Nasal Cannula 08/25/24 04:00 120 H 08/25/24 04:00 127 H 26 H 151/82 H 94 L Nasal Cannula 08/25/24 03:00 Nasal Cannula 08/25/24 01:13 111 H 08/25/24 01:00 Nasal Cannula 08/25/24 00:39 114 H 08/25/24 00:39 112 H 08/25/24 00:00 120 H 08/25/24 00:00 112 H 28 H 157/81 H 94 L Nasal Cannula 08/24/24 23:00 Nasal Cannula 08/24/24 21:00 Nasal Cannula 08/24/24 20:00 100 H 08/24/24 20:00 98 H 28 H 148/77 H 95 Nasal Cannula 08/24/24 20:00 Nasal Cannula 08/24/24 20:00 98.3 F 08/24/24 18:45 97 H 08/24/24 18:45 92 H 08/24/24 18:45 92 L Nasal Cannula 08/24/24 18:35 Nasal Cannula 08/24/24 18:00 117 H 150/84 H 90 L Nasal Cannula O2 Flow Rate 08/25/24 16:00 3 08/25/24 15:00 08/25/24 13:00 3 08/25/24 12:00 08/25/24 12:00 08/25/24 11:20 08/25/24 11:20 08/25/24 11:20 3 08/25/24 11:00 3 08/25/24 09:00 3 08/25/24 08:00 08/25/24 08:00 3 08/25/24 08:00 08/25/24 07:06 08/25/24 07:06 08/25/24 07:06 3 08/25/24 06:56 3 08/25/24 05:00 3 08/25/24 04:00 08/25/24 04:00 3 08/25/24 03:00 3 08/25/24 01:13 08/25/24 01:00 3 08/25/24 00:39 08/25/24 00:39 08/25/24 00:00 08/25/24 00:00 3 08/24/24 23:00 3 08/24/24 21:00 3 08/24/24 20:00 08/24/24 20:00 3 08/24/24 20:00 3 08/24/24 20:00 08/24/24 18:45 08/24/24 18:45 08/24/24 18:45 2 08/24/24 18:35 3 08/24/24 18:00 3 Intake and Output 08/25/24 08/25/24 08/25/24 07:59 15:59 23:59 Intake Total 0 / 0 Balance 0 / 0 Intake: Intake, Oral Amount 0 / 0 Other: Number of Unmeasured Voids 1 Weight 58.74 kg Patient Weight 08/25/24 23:59 Weight 58.74 kg Laboratory Results - last 24 hr 08/25/24 06:56: WBC 16.0 H D, RBC 4.56, Hgb 12.6, Hct 38.7, MCV 84.9, MCH 27.6, MCHC 32.6, RDW 14.5, Plt Count 383, MPV 9.9, Neut % (Auto) 84.5 H, Lymph % (Auto) 6.4 L, [place] % (Auto) 6.4, Eos % (Auto) 0.1, Baso % (Auto) 0.3, Neut # (Auto) 13.5 H, Lymph # (Auto) 1.0, [place] # (Auto) 1.0, Eos # (Auto) 0.0, Baso # (Auto) 0.1, Total Counted 100, Neutrophils % (Manual) 90 H, Lymphocytes % (Manual) 6 L, Monocytes % (Manual) 4, Platelet Estimate Normal, RBC Morphology Normal, Sodium 143, Potassium 3.3 L, Chloride 111 H, Carbon Dioxide 22, Anion Gap 13.3, BUN 36 H, Creatinine 1.60 H, Estimated Creat Clear 25, Estimated GFR 31 L, Est GFR ( Amer) 37 L, Glucose 96 D, Calcium 8.6, Magnesium 2.1, Total Bilirubin 0.7, AST 39 H, ALT 18, Alkaline Phosphatase 103, Total Protein 6.4, Albumin 3.3 L, Globulin 3.1, Albumin/Globulin Ratio 1.1 I & O for Labs for Last 24 Hours: Intake & Output 08/22/24 08/23/24 08/24/24 08/25/24 23:59 23:59 23:59 23:59 Intake Total 705 / 705 0 / 0 Output Total 0 / 0 Balance 705 / 705 0 / 0 Weight 57.72 kg 60.55 kg 58.74 kg Microbiology Reports for the Last 24 Hours: Microbiology 08/23/24 17:30 Blood Blood Culture - Preliminary NO GROWTH AFTER 24 HOURS 08/23/24 17:30 Blood Blood Culture - Preliminary NO GROWTH AFTER 24 HOURS Constitutional: Present mild distress, thin, chronically ill appearing and agitated Head: Present atraumatic and normocephalic ENT: Present normal exam Comment:: Does not make eye contact when spoken to Respiratory: Present prolonged expiratory phase, crackles (Left lower lung field) and normal respiratory effort; Absent rhonchi or wheezes Comment:: Severe thoracic kyphosis, chin sits on chest Cardiac: Present Tachycardia Comment:: Irregularly irregular GI: Present soft and normal bowel sounds; Absent distention or tenderness (female): Present normal external exam Extremities: Present normal inspection and full ROM; Absent edema Comment:: Sarcopenia, not moving right upper EXTR Skin: Present intact; Absent erythema Comment:: Stage I pressure wound on back overlying hardware from her vertebral rods Neuro: Present alert and awake Comment:: Responds to verbal commands. Oriented to self. Unable to move right arm, cannot squeeze on command. Able to move left arm and moving legs spontaneously. Assessment and Plan *Assessment and plan (1) Severe sepsis: Status: Acute Category: Medical Code(s): A41.9 - Sepsis, unspecified organism; R65.20 - Severe sepsis without septic shock (2) Pneumonia: Status: Acute Category: Medical Code(s): J18.9 - Pneumonia, unspecified organism (3) Acute encephalopathy: Status: Acute Category: Medical Code(s): G93.40 - Encephalopathy, unspecified (4) CVA (cerebral vascular accident): Status: Acute Category: Medical Code(s): I63.9 - Cerebral infarction, unspecified (5) Acute hypoxic respiratory failure: Status: Acute Category: Medical Code(s): J96.01 - Acute respiratory failure with hypoxia (6) A-fib: Status: Acute Qualifiers: Atrial fibrillation type: paroxysmal Qualified Code(s): I48.0 - Paroxysmal atrial fibrillation Category: Medical Code(s): I48.91 - Unspecified atrial fibrillation (7) Postural kyphosis, thoracic region: Status: Acute Category: Medical Code(s): M40.04 - Postural kyphosis, thoracic region (8) Severe protein-calorie malnutrition: Status: Acute Category: Medical Code(s): E43 - Unspecified severe protein-calorie malnutrition Plan Ms. Retana is an 84-year-old female with multiple comorbidities and severe thoracic kyphosis who presents from [place] for altered mental status and hypoxia. Found to be septic with pneumonia and respiratory alkalosis. Discussed case with ER physician, request admission for treatment and further management of respiratory failure and encephalopathy. I agreed to admit. PSI/port score of 153. Class V risk. Approximately 30% mortality risk. Seriously ill. Necessitating inpatient care. CT read finally came back showing stroke. Problems addressed as follows: Severe sepsis Acute hypoxemic respiratory failure Respiratory alkalosis -White count bumped to 16 today. No fever overnight however. Hemoglobin stable at 12.6. Repeat CBC, CMP, magnesium ordered for the morning. - Goal sats greater 90%, currently on 3 nasal cannula -Continue Levaquin 750 mg every 48 hours based on creatinine clearance. Continue Tamiflu 30 mg daily. - Sputum and blood cultures pending. -Urinalysis fairly unremarkable. Encephalopathy Subacute stroke -Concern for encephalopathy due to metabolic disorder, sepsis, flu versus subacute finding on CT of head per my review that shows edema consistent with stroke. Radiology confirms subacute stroke on CT. Patient has allergy to aspirin, initiate Plavix 75 mg daily for 21 days. Right upper extremity deficit. Therapy consulted. Not moving her right upper extremity. Will have therapy evaluate and work with patient during admission. Further goals of care discussion pending patient's progress and response to treatment for flu over the next couple days. -Plavix 75 mg daily for 21 days, has reported allergy to aspirin CKD 4 -Kidney function continues to improve, BUN 36, creatinine 1.6. Making good urine. Potassium 3.3, will replace IV today with 30 mEq. Magnesium normal at 2.1. -Renally dose meds, caution with nephrotoxic Reportedly has history of A-fib/CHF: Continue isosorbide mononitrate 30 mg daily, remains tachycardic, increase metoprolol succinate to 50 mg twice daily Has previously been on hospice. In the setting of new stroke, will continue to discuss goals of care with family DNR Lovenox 30 mg daily subcu
[2024-08-25] MEDS: ENOXAPARIN 30MG/0.3ML SYRINGE 30 MG SUBCUT (21:26)
[2024-08-25] MEDS: QUETIAPINE 25MG TABLET 25 MG PO (21:33)
[2024-08-26] VITALS (12 sets, daily range): BP systolic 124–168; BP diastolic 63–103; PULSE 86–124; RESP 17–44; TEMP 36.8–38.2; O2SAT 91–97; BMI 24.5
[2024-08-26] MEDS: ACETAMINOPHEN 1,000MG/100ML VIAL 1000 MG IV ×2 (00:33→20:56)
[2024-08-26] MEDS: LEVALBUTEROL 1.25MG/3ML NEB 1.25 MG IH ×4 (05:40→23:13)
[2024-08-26 07:07] LABS: Albumin Level 3.3 g/dl (3.5-5.0); Chloride 115 mmol/L (98-107); Sodium 146 mmol/L (136-145)
[2024-08-26 07:10] LABS: Alanine Aminotransferase 17 U/L (12-78); Aspartate Amino Transferase 32 U/L (14-36); Blood Urea Nitrogen 30 mg/dl (7-17); Carbon Dioxide 24 mmol/L (22.0-30.0); Creatinine Clearance Estimated 29 mL/min (50-200); Estimated Glomerular Filt Rate 36 ml/min (>60); GFR (African American) 43 ML/MIN (>60)
[2024-08-26 07:11] LABS: Alkaline Phosphatase 90 U/L (38-126); Bilirubin,Total 0.6 mg/dl (0.2-1.3); Calcium 8.5 mg/dl (8.4-10.2); Globulin 3.3 g/dL (1.3-3.2); Glucose 101 mg/dl (74-100); Total Protein,Serum 6.6 g/dl (6.3-8.2)
--- NOTE | 2024-08-26 07:49 | P.PN_ITS ---
Subjective *Date: 08/26/24 *Time: 14:10 Interval history: Patient on 3 L oxygen. Tolerating some p.o. intake. Not drinking on her own, having to be fed and watered. Tolerating p.o. meds. Confused, appears to have right sided hemineglect on exam. Does not notice or look to the right when provider stand to her right. Medical Exam Vital signs and Labs for Last 24 Hours: Vital Signs Temp Pulse Pulse Resp BP Pulse Ox O2 Del Method 08/26/24 05:40 92 H 08/26/24 05:40 90 08/26/24 04:00 99.5 F 86 20 125/63 95 Nasal Cannula 08/26/24 03:00 Nasal Cannula 08/26/24 01:00 Nasal Cannula 08/26/24 00:00 100.7 F H 100 H 18 167/83 H 95 Nasal Cannula 08/25/24 23:41 92 H 08/25/24 23:41 91 H 08/25/24 23:00 Nasal Cannula 08/25/24 21:00 Nasal Cannula 08/25/24 20:00 Nasal Cannula 08/25/24 20:00 98.7 F 100 H 22 164/70 H 93 L Nasal Cannula 08/25/24 19:54 Nasal Cannula 08/25/24 18:10 91 H 08/25/24 18:04 Nasal Cannula 08/25/24 18:00 93 H 08/25/24 17:00 Nasal Cannula 08/25/24 16:00 90 08/25/24 16:00 98.2 F 94 H 22 161/84 H 94 L Nasal Cannula 08/25/24 15:00 Room Air 08/25/24 13:00 Nasal Cannula 08/25/24 12:00 98.1 F 97 H 20 163/80 H 93 L 08/25/24 12:00 100 H 08/25/24 11:20 94 H 08/25/24 11:20 90 08/25/24 11:20 94 L Nasal Cannula 08/25/24 11:00 Nasal Cannula 08/25/24 09:00 Nasal Cannula 08/25/24 08:00 110 H 08/25/24 08:00 Nasal Cannula 08/25/24 08:00 99.3 F 98 H 20 171/81 H 93 L O2 Flow Rate 08/26/24 05:40 08/26/24 05:40 08/26/24 04:00 3 08/26/24 03:00 3 08/26/24 01:00 3 08/26/24 00:00 3 08/25/24 23:41 08/25/24 23:41 08/25/24 23:00 3 08/25/24 21:00 3 08/25/24 20:00 3 08/25/24 20:00 3 08/25/24 19:54 3 08/25/24 18:10 08/25/24 18:04 3 08/25/24 18:00 08/25/24 17:00 3 08/25/24 16:00 08/25/24 16:00 3 08/25/24 15:00 08/25/24 13:00 3 08/25/24 12:00 08/25/24 12:00 08/25/24 11:20 08/25/24 11:20 08/25/24 11:20 3 08/25/24 11:00 3 08/25/24 09:00 3 08/25/24 08:00 08/25/24 08:00 3 08/25/24 08:00 Intake and Output 08/25/24 08/25/24 08/26/24 15:59 23:59 07:59 Output Total 0 / 0 Balance 0 / 0 Output: Output, Urine Amount 0 / 0 Other: Number of Unmeasured Voids 1 Number of Bowel Movements 1 Weight 60.373 kg Patient Weight 08/26/24 23:59 Weight 60.373 kg Laboratory Results - last 24 hr 08/25/24 06:56: Total Counted 100, Neutrophils % (Manual) 90 H, Lymphocytes % (Manual) 6 L, Monocytes % (Manual) 4, Platelet Estimate Normal, RBC Morphology Normal 08/26/24 06:50: Sodium 146 H, Potassium 4.0 D, Chloride 115 H, Carbon Dioxide 24, Anion Gap 11.0, BUN 30 H, Creatinine 1.40 H, Estimated Creat Clear 29, Estimated GFR 36 L, Est GFR ( Amer) 43 L, Glucose 101 H, Calcium 8.5, Total Bilirubin 0.6, AST 32, ALT 17, Alkaline Phosphatase 90, Total Protein 6.6, Albumin 3.3 L, Globulin 3.3 H, Albumin/Globulin Ratio 1.0 L I & O for Labs for Last 24 Hours: Intake & Output 08/23/24 08/24/24 08/25/24 08/26/24 23:59 23:59 23:59 23:59 Intake Total 705 / 705 0 / 0 Output Total 0 / 0 0 / 0 Balance 705 / 705 0 / 0 Weight 57.72 kg 60.55 kg 58.74 kg 60.373 kg Microbiology Reports for the Last 24 Hours: Microbiology 08/23/24 17:30 Blood Blood Culture - Preliminary NO GROWTH AFTER 48 HOURS 08/23/24 17:30 Blood Blood Culture - Preliminary NO GROWTH AFTER 48 HOURS Constitutional: Present no acute distress, thin, chronically ill appearing and a gitated Head: Present atraumatic and normocephalic ENT: Present normal exam Comment:: Does not make eye contact when spoken to Respiratory: Present prolonged expiratory phase, crackles (Left lower lung field) and normal respiratory effort; Absent rhonchi or wheezes Comment:: Severe thoracic kyphosis, chin sits on chest Cardiac: Present Tachycardia Comment:: Irregularly irregular GI: Present soft and normal bowel sounds; Absent distention or tenderness (female): Present normal external exam Extremities: Present normal inspection and full ROM; Absent edema Comment:: Sarcopenia, not moving right upper EXTR Skin: Present intact; Absent erythema Comment:: Stage I pressure wound on back overlying hardware from her vertebral rods Neuro: Present Weakness, alert and awake Comment:: Responds to verbal commands. Oriented to self. Unable to move right arm, cannot squeeze on command. Able to move left arm and moving legs spontaneously. Will not look to the right, if standing on the right she does not see staff. Concern for hemineglect Assessment and Plan *Assessment and plan (1) Severe sepsis: Status: Acute Category: Medical Code(s): A41.9 - Sepsis, unspecified organism; R65.20 - Severe sepsis without septic shock (2) Pneumonia: Status: Acute Category: Medical Code(s): J18.9 - Pneumonia, unspecified organism (3) Acute encephalopathy: Status: Acute Category: Medical Code(s): G93.40 - Encephalopathy, unspecified (4) CVA (cerebral vascular accident): Status: Acute Category: Medical Code(s): I63.9 - Cerebral infarction, unspecified (5) Acute hypoxic respiratory failure: Status: Acute Category: Medical Code(s): J96.01 - Acute respiratory failure with hypoxia (6) A-fib: Status: Acute Qualifiers: Atrial fibrillation type: paroxysmal Qualified Code(s): I48.0 - Paroxysmal atrial fibrillation Category: Medical Code(s): I48.91 - Unspecified atrial fibrillation (7) Postural kyphosis, thoracic region: Status: Acute Category: Medical Code(s): M40.04 - Postural kyphosis, thoracic region (8) Severe protein-calorie malnutrition: Status: Acute Category: Medical Code(s): E43 - Unspecified severe protein-calorie malnutrition Plan Ms. Retana is an 84-year-old female with multiple comorbidities and severe thoracic kyphosis who presents from [place] for altered mental status and hypoxia. Found to be septic with pneumonia and respiratory alkalosis. Discussed case with ER physician, request admission for treatment and further management of respiratory failure and encephalopathy. I agreed to admit. PSI/port score of 153. Class V risk. Approximately 30% mortality risk. Seriously ill. Necessitating inpatient care. CT read finally came back showing stroke. Concern patient is not feeding herself. Will have goals of care discussion with family. Problems addressed as follows: Severe sepsis Acute hypoxemic respiratory failure Respiratory alkalosis -CBC pending this afternoon, repeat CBC, CMP, magnesium ordered for the morning. - Goal sats greater 90%, currently on 3 nasal cannula - Continue Levaquin 750 mg every 48 hours based on creatinine clearance. Continue Tamiflu 30 mg daily. - Sputum and blood cultures negative Encephalopathy Subacute stroke -Some improvement in her mentation but appears to have hemineglect. Oriented to self only. - Patient has allergy to aspirin, initiate Plavix 75 mg daily for 21 days. Right upper extremity deficit. -Therapy consulted. Not moving her right upper extremity. Will have therapy evaluate and work with patient during admission. Further goals of care discussion pending patient's progress and response to treatment for flu over the next couple days. -Plavix 75 mg daily for 21 days, has reported allergy to aspirin CKD 4 -Kidney function continues to improve, BUN 30, creatinine 1.4. Potassium 4.0. Sodium elevated however at 146. Concern for poor p.o. fluid intake. Initiate D5 half-normal saline for total of 500 cc today at 125 cc an hour. Repeat BMP ordered for this afternoon -Renally dose meds, caution with nephrotoxic Reportedly has history of A-fib/CHF: Continue isosorbide mononitrate 30 mg daily, remains tachycardic, increase metoprolol succinate to 50 mg twice daily Has previously been on hospice. In the setting of new stroke, will continue to discuss goals of care with family. Concern patient's not feeding herself, neglecting her right side, given her comorbidities, decline, stroke, hemineglect, and goals of comfort for patient, feel patient would be an appr opriate candidate for hospice at this time. DNR Lovenox 30 mg daily subcu
--- NOTE | 2024-08-26 07:59 | PC.NURSE ---
Pt. is alert to name. unable to follow directions. Pt. non verbal, moans and groans. Pt. able to move left arm. Pt. like to grab and hold things with left hand. Pt. was febrile overnight. Tylenol IV given for tamp and temp decreased. Pt. slept well. overnight. Pt. had a large liquid stool at shift change last night. VSS, Pt. unable to use call light. Pt. checked on frequently.
--- NOTE | 2024-08-26 08:03 | PC.NURSE ---
Pt. took meds whole in a spoon of applesauce.
[2024-08-26] MEDS: DEX 5% IV (08:16)
[2024-08-26] MEDS: NACL 0.45% IV (08:16)
[2024-08-26] MEDS: DULOXETINE 30MG CAPSULE.DR 30 MG PO (08:17)
[2024-08-26] MEDS: ISOSORBIDE MONO 30MG TAB.ER.24H 30 MG PO (08:17)
[2024-08-26] MEDS: IRBESARTAN 75MG TABLET 37.5 MG PO (08:18)
[2024-08-26] MEDS: CLOPIDOGREL 75MG TAB 75 MG PO (08:18)
[2024-08-26] MEDS: PRAMIPEXOLE 0.25MG TAB 0.5 MG PO (08:18)
[2024-08-26] MEDS: METOPROLOL SUCCINATE XL 50MG TABLET 50 MG PO ×2 (08:18→20:48)
[2024-08-26] MEDS: OSELTAMIVIR PHOSPHATE 6MG/ML ORAL SUSP 60ML 30 MG PO (08:19)
--- NOTE | 2024-08-26 13:55 | [facility].PTEV ---
Physical Therapy Evaluation Rehab PT IP Evaluation Start: 08/25/24 17:09 Freq: ONCE Status: Active Protocol: Document 08/26/24 12:46 [email or web address] (Rec: 08/26/24 13:55 [email or web address] [id number]) Subjective/History History History Pt. is an 84 year old female who presented to [facility] on from [place] with increased confusion. Per history and physical note, She is reportedly alert with pleasantly confused at baseline. Able to feed herself and perform some ADLs. She is not speaking or communicating at this time. Last known normal was 08/19. Having some muscle twitches in her right upper extremity. Recently negative for flu or COVID but has become more weak . Has developed a wet cough. Hypoxic on arrival. Brought in by EMS from [place]. Patient unable to provide history or review of systems. EMS was called due to patient declining. Necessitating supplemental oxygen for sats above 90. Workup in the ER, patient found to be septic with what appears to be a pneumonia. Initiated on Levaquin. Medicine consulted for admission and further management. Subjective Subjective Pt poor historian and unable to provide subjective history due to confusion. Pt's only response to subjective questioning was grunting. Pt able to follow only 1 simple command throughout the evaluation. Per history & physical note, pt presented from [place] and was pleasantly confused at baseline. Also states she was able to feed herself and perform some ADLs at baseline. New diagnosis of cancer in past 12 No months? Rehab PT IP Eval Objective Appearance Patient Behavior Confused Difficulty following instructions severe Speech Pattern Mumbled,No Speech Ambulation Patient Able to Ambulate No Balance Ability to Arise Unable Sitting Balance Leans or slides in chair Dynamic Sitting Balance Ability Zero Transfers Bed Transfer Ability Total/Dependent (100%) ROM LLE PT ROM Status ABN Abnormal ROM Comment active knee/ankle/ft. <50%, hip passive <50% grossly RLE PT ROM Status ABN Abnormal ROM Comment active knee/ankle/ft. <50%, hip passive <50% grossly LUE PT ROM Status ABN Abnormal ROM Comment Full PROM, unable to elevate shoulder, elbow/wrist AROM/ spout worker <50% active RUE PT ROM Status ABN Abnormal ROM Comment Flaccid MMT LUE PT MMT WFL Abnormal MMT Grade WFL spout worker strength, 3-/5 wrist/ elbow, 1/5 shoulder grossly RUE PT MMT ABN Abnormal MMT Grade 0/5 RLE Abnormal MMT Grade 3-/5 knee ext./flexion/ankle PF/DF, 1 hip grossly LLE PT MMT WFL Abnormal MMT Grade 3-/5 knee ext./flexion/ankle PF/DF, 15 hip grossly Rehab PT IP prob,goals,plan Problems Date of Evaluation: 08/26/24 PT IP Problems Bed Mobility,Transfers,Gait, Balance,Self care,Safety Rehab Potential Rehab Potential Fair Equipment Needs Assistive Devices Platform Walker,Wheelchair Plan PT Intervention Plan Bed Mobility,Transfers,Gait, Balance,Self care,Safety, Therapeutic Exercise PT Plan Frequency Daily Duration LOS Discharge Goals Bed Transfer Ability Maximum x 2 (75% assist) Sit to Stand Chair Transfer Ability Maximum x 2 (75% assist) Discharge Plan PT Discharge Plan Pt will benefit from skilled PT while admitted to [facility] and is most appropriate to discharge back to [place] for long-term placement once deemed medically stable by MD. Without skilled PT the patient is at an increased risk for wounds, falls, fractures, increased burden of care and further functional decline. Eval Complexity Eval Charge Codes 58157 - Moderate Complexity PHYSICIAN CERTIFICATION: I certify the specified therapy services for Eri Retana are required, authorized, and reviewed every 30 days.
[2024-08-26] MEDS: LEVOFLOXACIN/D5W 250 MG/50 ML PIGGYBACK 100 MG IV ×3 (14:49→15:57)
[2024-08-26 14:59] LABS: Basophils % 0.1 % (0.1-2.0); Eosinophils # 0.1 K/mm3 (0.0-0.4); Eosinophils % 0.7 % (0.1-12.0); Hematocrit 38.6 % (37.0-47.0); Hemoglobin 11.9 g/dL (12.2-16.2); Lymphocytes # 1.5 K/mm3 (0.7-4.5); Lymphocytes % 13.1 % (10-50); Mean Corpuscular HGB Conc 30.8 g/dL (31.8-35.4); Mean Corpuscular Hemoglobin 27.3 pg (27.0-31.2); Mean Corpuscular Volume 88.5 fl (81-99); Monocytes # 1.2 K/mm3 (0.1-1.0); Monocytes % 10.2 % (1.7-9.3); Neutrophils % 70.7 % (37.0-80.0); Platelet Count 391 K/mm3 (142-424); Red Blood Count 4.36 M/mm3 (4.20-5.40); Red Cell Distribution Width 14.9 % (11.5-17.5); White Blood Count 11.3 K/mm3 (4.8-10.8)
[2024-08-26 15:06] LABS: Chloride 116 mmol/L (98-107); Potassium 3.9 mmoL/L (3.5-5.1); Sodium 144 mmol/L (136-145)
[2024-08-26 15:08] LABS: Blood Urea Nitrogen 27 mg/dl (7-17)
[2024-08-26 15:09] LABS: Anion Gap 7.9 mEq/L (5-15); Calcium 8.3 mg/dl (8.4-10.2); Carbon Dioxide 24 mmol/L (22.0-30.0); Creatinine Clearance Estimated 31 mL/min (50-200); Estimated Glomerular Filt Rate 39 ml/min (>60); GFR (African American) 47 ML/MIN (>60); Glucose 111 mg/dl (74-100)
--- NOTE | 2024-08-26 18:35 | PC.NURSE ---
patient is alert to self. she remains on 3LNC, tolerating well. incontinent of urine and bowel, brief in place. patient took pills whole in applesauce this morning and has had sips of water throughout the shift. unable to contact daughter and person to notify at this time. bed alarm on. no further requests at this time.
[2024-08-26] MEDS: ENOXAPARIN 30MG/0.3ML SYRINGE 30 MG SUBCUT (20:32)
[2024-08-26] MEDS: IPRATROPIUM BROMIDE 0.5 MG/2.5ML SOLUTION IH (20:41)
[2024-08-26] MEDS: QUETIAPINE 25MG TABLET 25 MG PO (20:48)
[2024-08-26] MEDS: MAGNESIUM SULFATE IN WATER 2 GM/50 ML PIGGYBACK IV (21:01)
[2024-08-27] VITALS (10 sets, daily range): BP systolic 136–166; BP diastolic 63–89; PULSE 77–116; RESP 18–40; TEMP 36.4–37.7; O2SAT 92–100; BMI 24.2
[2024-08-27] MEDS: LEVALBUTEROL 1.25MG/3ML NEB 1.25 MG IH ×2 (06:02→23:57)
--- NOTE | 2024-08-27 06:53 | PC.NURSE ---
Pt. is alert to name. Pt. is on 3 liters oxygen per NC. Pt. sometimes pulls off oxygen. O2 sats 88-90 RA. with oxygen 92-93. Pt. has Kyphosis and is very hunched over in bed. Pt. able to move left arm. no movement noted in right arm. Pt. moans and groans most of the time. she did have clear speech x 2 overnight with just a 2-3 word answer. Pt. took meds whole with applesauce and tolerated well. Pt. given small amounts of water overnight. Mouth care done x 2. chapsick to lips. Pt. had episode of low grade fever, resp. rate up to 44, HR- 110-120. Lungs sounds wheezy and some rhoci. Tylenol IV given x 2. Mag sulfate given x 1. Neb treatments given. VSS. Pt. unable to use call light. checked on frequently.
[2024-08-27 07:13] LABS: Basophils # 0.1 K/mm3 (0-0.2); Basophils % 0.6 % (0.1-2.0); Eosinophils # 0.1 K/mm3 (0.0-0.4); Eosinophils % 0.6 % (0.1-12.0); Hematocrit 37.2 % (37.0-47.0); Hemoglobin 11.9 g/dL (12.2-16.2); Lymphocytes # 1.2 K/mm3 (0.7-4.5); Lymphocytes % 12.4 % (10-50); Mean Corpuscular Hemoglobin 27.7 pg (27.0-31.2); Mean Corpuscular Volume 86.5 fl (81-99); Mean Platelet Volume 9.8 fl (7.4-10.4); Monocytes # 0.8 K/mm3 (0.1-1.0); Monocytes % 8.5 % (1.7-9.3); Neutrophils # 7.2 K/mm3 (1.8-7.8); Neutrophils % 72.4 % (37.0-80.0); Platelet Count 381 K/mm3 (142-424); Red Cell Distribution Width 14.8 % (11.5-17.5); White Blood Count 9.9 K/mm3 (4.8-10.8)
[2024-08-27 07:32] LABS: Alanine Aminotransferase 15 U/L (12-78); Alkaline Phosphatase 87 U/L (38-126); Anion Gap 11.7 mEq/L (5-15); Aspartate Amino Transferase 30 U/L (14-36); Bilirubin,Total 0.4 mg/dl (0.2-1.3); Blood Urea Nitrogen 24 mg/dl (7-17); Calcium 8.2 mg/dl (8.4-10.2); Carbon Dioxide 24 mmol/L (22.0-30.0); Chloride 116 mmol/L (98-107); Creatinine Clearance Estimated 31 mL/min (50-200); Estimated Glomerular Filt Rate 39 ml/min (>60); GFR (African American) 47 ML/MIN (>60); Globulin 3.1 g/dL (1.3-3.2); Glucose 112 mg/dl (74-100); Potassium 3.7 mmoL/L (3.5-5.1); Sodium 148 mmol/L (136-145); Total Protein,Serum 6.1 g/dl (6.3-8.2)
--- NOTE | 2024-08-27 09:47 | HMH.OTEV ---
OT Inpatient Evaluation Rehab OT IP Evaluation Start: 08/25/24 17:09 Freq: ONCE Status: Active Protocol: Document 08/27/24 09:44 [email or web address] (Rec: 08/27/24 09:47 [facility] [id number]) Rehab OT IP Assessment Subjective History Pt. is an 84 year old female who presented to [facility] on from [place] with increased confusion. Per history and physical note, She is reportedly alert with pleasantly confused at baseline. Able to feed herself and perform some ADLs. She is not speaking or communicating at this time. Last known normal was 08/19. Having some muscle twitches in her right upper extremity. Recently negative for flu or COVID but has become more weak . Has developed a wet cough. Hypoxic on arrival. Brought in by EMS from [place]. Patient unable to provide history or review of systems. EMS was called due to patient declining. Necessitating supplemental oxygen for sats above 90. Workup in the ER, patient found to be septic with what appears to be a pneumonia. Initiated on Levaquin. Medicine consulted for admission and further management. Subjective Pt poor historian and unable to provide subjective history due to confusion. Pt's only oriented to first name. Pt able to follow only 1 simple command throughout the evaluation. Per history & physical note, pt presented from [place] and was pleasantly confused at baseline. Also states she was able to feed herself and perform some ADLs at baseline. Objective Patient Orientation Person Right Upper Extremity Gross ROM Sev Limitation >75% Left Upper Extremity Gross ROM Sev Limitation >75% Shoulder ROM Limitations Muscle Weakness Elbow ROM Limitations Muscle Weakness Wrist Limitations of Range of Motion Muscle Weakness Bed Mobility bed mobility-scooting,bed mobility - supine/sit Assist Level Maximum x 2 (75% assist) Rehab OT IP prob,goals,plan Problems Date of Evaluation: 08/27/24 OT IP Problems Bed Mobility,Transfers,Balance ,Self care,Safety Rehab Potential Rehab Potential Good Equipment Needs Assistive Devices Rolling / Wheeled Walker Plan OT intervention Plan Bed Mobility,Transfers,Balance ,Self care,Safety,Therapeutic Exercise OT Plan Frequency Daily Duration LOS Discharge Goals Bed Mobility Ability Assistance x1 Sit to Stand Chair Transfer Ability Maximum x 1 (75% assist) Chair Transfer Ability Maximum x 1 (75% assist) Chair Transfer Technique Sit to/from Ambulatory Chair Transfer Assistive Devices Rolling Walker Feeding Ability Assist with Tray Set Up Lower Body Dressing Ability Maximum Assistance Upper Body Dressing Ability Maximum Assistance Bathing Ability Maximum Assistance Performing Toilet Hygiene Ability Maximum Assistance Overall Commode/Toilet Transfer Ability Maximum Assistance Commode/Toilet Transfer Technique Stand Pivot Commode/Toilet Transfer Assistive Grab Bars Devices Oral Care Assist Maximum Assistance Decrease in Endurance Yes Discharge Plan OT Discharge Plan Pt will benefit from skilled OT while admitted to [facility] and is most appropriate to discharge back to [place] for long-term placement once deemed medically stable by MD. Without skilled OT the patient is at an increased risk for wounds, falls, fractures, increased burden of care and further functional decline. Eval Complexity Eval Charge Codes 82914 - Moderate Complexity PHYSICIAN CERTIFICATION: I certify the specified therapy services for Erisissy Retana are required, authorized, and reviewed every 30 days.
[2024-08-27] MEDS: DULOXETINE 30MG CAPSULE.DR 30 MG PO (10:09)
[2024-08-27] MEDS: CLOPIDOGREL 75MG TAB 75 MG PO (10:09)
[2024-08-27] MEDS: PRAMIPEXOLE 0.25MG TAB 0.5 MG PO (10:10)
[2024-08-27] MEDS: IRBESARTAN 75MG TABLET 37.5 MG PO (10:10)
[2024-08-27] MEDS: METOPROLOL SUCCINATE XL 50MG TABLET 50 MG PO ×2 (10:10→20:54)
[2024-08-27] MEDS: ISOSORBIDE MONO 30MG TAB.ER.24H 30 MG PO (10:10)
[2024-08-27] MEDS: OSELTAMIVIR PHOSPHATE 6MG/ML ORAL SUSP 60ML 30 MG PO (10:15)
[2024-08-27] MEDS: Dex 5% in 0.45% NaCl 1,000 ML 150 ML IV (11:19)
--- NOTE | 2024-08-27 12:16 | DIET.NUTRFU ---
patient tolerating pureed diet, requiring 1:1 assistance with all oral intake. Na increased, IV hydration ordered. Oral intake is not meeting needs, refusing multiple meals. Added ensure to all trays to offer for increased calories and protein. Goals of care has been discussed and hospice consulted
[2024-08-27 14:31] LABS: Magnesium 2.6 mg/dl (1.6-2.3)
--- NOTE | 2024-08-27 14:54 | EXP.ACUTE.PN ---
Subjective *Date: 08/27/24 *Time: 22:23 Interval history: Patient was somewhat interactive on exam this morning. Said desirae. Told me her name. More responsive than yesterday. Still not using her right arm. Necessitating assistance to eat. Poor p.o. intake still requiring 3 L oxygen. Afebrile. Goals of care discussion with daughter today. See ACP note for full details. Daughter open to hospice. Medical Exam Vital signs and Labs for Last 24 Hours: Vital Signs Temp Pulse Pulse Resp BP Pulse Ox O2 Del Method 08/27/24 13:00 Nasal Cannula 08/27/24 11:54 97.7 F 92 H 160/85 H 97 Nasal Cannula 08/27/24 11:00 Nasal Cannula 08/27/24 08:03 Nasal Cannula 08/27/24 08:00 Nasal Cannula 08/27/24 08:00 98.7 F 92 H 22 143/79 H 95 Nasal Cannula 08/27/24 07:00 Nasal Cannula 08/27/24 06:02 77 08/27/24 06:02 80 08/27/24 06:02 94 L Nasal Cannula 08/27/24 05:00 Nasal Cannula 08/27/24 04:00 99.9 F H 114 H 40 H 166/84 H 95 Nasal Cannula 08/27/24 03:00 Nasal Cannula 08/27/24 01:00 Nasal Cannula 08/27/24 00:45 111 H 08/27/24 00:42 104 H 08/27/24 00:00 99.4 F 116 H 36 H 136/63 93 L Nasal Cannula 08/26/24 23:00 Nasal Cannula 08/26/24 21:00 Nasal Cannula 08/26/24 20:43 120 H 08/26/24 20:41 124 H 08/26/24 20:41 122 H 08/26/24 20:00 Nasal Cannula 08/26/24 20:00 98.2 F 122 H 44 H 168/103 H 91 L Nasal Cannula 08/26/24 18:33 Nasal Cannula 08/26/24 18:28 Nasal Cannula 08/26/24 18:10 90 08/26/24 18:00 93 H 08/26/24 17:00 Nasal Cannula 08/26/24 16:00 99.2 F 100 H 17 166/86 H 97 Nasal Cannula 08/26/24 15:00 Nasal Cannula O2 Flow Rate 08/27/24 13:00 3 08/27/24 11:54 3 08/27/24 11:00 3 08/27/24 08:03 08/27/24 08:00 3 08/27/24 08:00 3 08/27/24 07:00 3 08/27/24 06:02 08/27/24 06:02 08/27/24 06:02 3 08/27/24 05:00 3 08/27/24 04:00 3 08/27/24 03:00 3 08/27/24 01:00 3 08/27/24 00:45 08/27/24 00:42 08/27/24 00:00 3 08/26/24 23:00 3 08/26/24 21:00 3 08/26/24 20:43 08/26/24 20:41 08/26/24 20:41 08/26/24 20:00 3 08/26/24 20:00 4 08/26/24 18:33 08/26/24 18:28 3 08/26/24 18:10 08/26/24 18:00 08/26/24 17:00 08/26/24 16:00 3 08/26/24 15:00 Intake and Output 08/26/24 08/27/24 08/27/24 23:59 07:59 15:59 Intake Total 150 / 650 Output Total 0 / 0 100 / 100 Balance 150 / 650 -100 / -100 Intake: Intake, Total IV Amount 150 / 650 Levofloxacin/D5w 250 mg In 50 150 / 150 ml @ 100 mls/hr IV Q30M [facility] Rx# :[id number] Output: Output, Urine Amount 0 / 0 100 / 100 Other: Number of Unmeasured Voids 1 1 1 Number of Bowel Movements 1 Weight 59.738 kg Patient Weight 08/27/24 23:59 Weight 59.738 kg Laboratory Results - last 24 hr 08/26/24 14:50: WBC 11.3 H D, RBC 4.36, Hgb 11.9 L, Hct 38.6, MCV 88.5, MCH 27.3, MCHC 30.8 L, RDW 14.9, Plt Count 391, MPV 10.0, Neut % (Auto) 70.7, Lymph % (Auto) 13.1, [place] % (Auto) 10.2 H, Eos % (Auto) 0.7, Baso % (Auto) 0.1, Neut # (Auto) 8.0 H, Lymph # (Auto) 1.5, [place] # (Auto) 1.2 H, Eos # (Auto) 0.1, Baso # (Auto) 0.0, Sodium 144, Potassium 3.9, Chloride 116 H, Carbon Dioxide 24, Anion Gap 7.9, BUN 27 H, Creatinine 1.30 H, Estimated Creat Clear 31, Estimated GFR 39 L, Est GFR ( Amer) 47 L, Glucose 111 H, Calcium 8.3 L 08/27/24 06:29: WBC 9.9, RBC 4.30, Hgb 11.9 L, Hct 37.2, MCV 86.5, MCH 27.7, MCHC 32.0, RDW 14.8, Plt Count 381, MPV 9.8, Neut % (Auto) 72.4, Lymph % (Auto) 12.4, [place] % (Auto) 8.5, Eos % (Auto) 0.6, Baso % (Auto) 0.6, Neut # (Auto) 7.2, Lymph # (Auto) 1.2, [place] # (Auto) 0.8, Eos # (Auto) 0.1, Baso # (Auto) 0.1, Sodium 148 H, Potassium 3.7, Chloride 116 H, Carbon Dioxide 24, Anion Gap 11.7, BUN 24 H, Creatinine 1.30 H, Estimated Creat Clear 31, Estimated GFR 39 L, Est GFR ( Amer) 47 L, Glucose 112 H, Calcium 8.2 L, Magnesium 2.6 H D, Total Bilirubin 0.4, AST 30, ALT 15, Alkaline Phosphatase 87, Total Protein 6.1 L, Albumin 3.0 L, Globulin 3.1, Albumin/Globulin Ratio 1.0 L I & O for Labs for Last 24 Hours: Intake & Output 08/24/24 08/25/24 08/26/24 08/27/24 23:59 23:59 23:59 23:59 Intake Total 705 / 705 0 / 0 650 / 650 Output Total 0 / 0 0 / 0 0 / 0 100 / 100 Balance 705 / 705 0 / 0 650 / 650 -100 / -100 Weight 60.55 kg 58.74 kg 60.373 kg 59.738 kg Constitutional: Present no acute distress, thin, chronically ill appearing and agitated Head: Present atraumatic and normocephalic ENT: Present normal exam Comment:: Does not make eye contact when spoken to Respiratory: Present prolonged expiratory phase, crackles (Left lower lung field) and normal respiratory effort; Absent rhonchi or wheezes Comment:: Severe thoracic kyphosis, chin sits on chest Cardiac: Present Tachycardia Comment:: Irregularly irregular GI: Present soft and normal bowel sounds; Absent distention or tenderness (female): Present normal external exam Extremities: Present normal inspection and full ROM; Absent edema Comment:: Sarcopenia, not moving right upper EXTR Skin: Present intact; Absent erythema Comment:: Stage I pressure wound on back overlying hardware from her vertebral rods Neuro: Present Weakness, alert and awake Comment:: Responds to verbal commands. Oriented to self. Unable to move right arm, cannot squeeze on command. Able to move left arm and moving legs spontaneously. Will not look to the right, if standing on the right she does not see staff. Concern for hemineglect Assessment and Plan *Assessment and plan (1) Severe sepsis: Status: Acute Category: Medical Code(s): A41.9 - Sepsis, unspecified organism; R65.20 - Severe sepsis without septic shock (2) Pneumonia: Status: Acute Category: Medical Code(s): J18.9 - Pneumonia, unspecified organism (3) Acute encephalopathy: Status: Acute Category: Medical Code(s): G93.40 - Encephalopathy, unspecified (4) CVA (cerebral vascular accident): Status: Acute Category: Medical Code(s): I63.9 - Cerebral infarction, unspecified (5) Acute hypoxic respiratory failure: Status: Acute Category: Medical Code(s): J96.01 - Acute respiratory failure with hypoxia (6) A-fib: Status: Acute Qualifiers: Atrial fibrillation type: paroxysmal Qualified Code(s): I48.0 - Paroxysmal atrial fibrillation Category: Medical Code(s): I48.91 - Unspecified atrial fibrillation (7) Postural kyphosis, thoracic region: Status: Acute Category: Medical Code(s): M40.04 - Postural kyphosis, thoracic region (8) Severe protein-calorie malnutrition: Status: Acute Category: Medical Code(s): E43 - Unspecified severe protein-calorie malnutrition Plan Ms. Retana is an 84-year-old female with multiple comorbidities and severe thoracic kyphosis who presents from [place] for altered mental status and hypoxia. Found to be septic with pneumonia and respiratory alkalosis. Discussed case with ER physician, request admission for treatment and further management of respiratory failure and encephalopathy. I agreed to admit. PSI/port score of 153. Class V risk. Approximately 30% mortality risk. Seriously ill. Necessitating inpatient care. CT read finally came back showing stroke. Concern patient is not feeding herself. Goals of care discussion with family today. Not interested in feeding tube. Would like to allow for comfort feeds. Discussed patient significant change due to stroke. Daughter would like to proceed with hospice consult. Problems addressed as follows: Severe sepsis Acute hypoxemic respiratory failure Respiratory alkalosis -White count remains normal at 9.9, hemoglobin 11.9. Stable on 3 L oxygen. repeat CBC, CMP, magnesium ordered for the morning. - Continue Levaquin 750 mg every 48 hours based on creatinine clearance. Continue Tamiflu 30 mg daily. - Sputum and blood cultures negative -Ipratropium 4 times a day as needed Encephalopathy Subacute stroke -Goals of care discussion with family today. Given patient's inability to feed herself, loss of functionality on the right side, we will proceed with hospice consult. Patient has had significant change in her functionality mobility. Family would like to focus on comfort. Would like to allow patient to eat/have comfort feeds. Given patient's comorbidities, poor prognosis for any meaningful recovery. Hospice to evaluate today, if admits patient, plan to [facility] the [facility]. - Not moving her right upper extremity. -Plavix 75 mg daily for 21 days, has reported allergy to aspirin CKD 4 -Kidney function continues to improve, BUN 24, creatinine 1.3. Lab holiday tomorrow due to goals of care. -Sodium 148, will administer 1 L D5 half normal saline today at 125 cc an hour. -Renally dose meds, caution with nephrotoxic Reportedly has history of A-fib/CHF: Continue isosorbide mononitrate 30 mg daily, remains tachycardic, increase metoprolol succinate to 50 mg twice daily DNR Pur?ed Diet
--- NOTE | 2024-08-27 17:47 | PC.NURSE ---
PT IS RESTING IN BED. ALERT TO SELF ONLY. PT WILL ANSWER SIMPLE YES OR NO QUESTIONS. PT REFUSED LUNCH TRAY HOWEVER DID EAT 75% OF A LATE BREAKFAST AND 75% OF DINNER. 2 ENSURES THIS SHIFT. PT DOES BETTER WITH HONEY THICK LIQUIDS. PT WILL BE COMBATIVE AND UNCOOPERATIVE AT TIMES. RIGHT SIDED PARALYSIS NOTED. PT WILL USE HER LEFT ARM TO REMOVE HER O2 CANNULA. O2 SATURATION HAS MAINTAINED 91-95% ON 3 L NC. LUNG SOUNDS DIMINISHED WITH SCATTERED RHONCHI. ABDOMEN SOFT/NON TENDER WITH ACTIVE BOWEL SOUNDS. LARGE BOWEL MOVEMENT THIS SHIFT. NEW IV ACCESS NOTED TO CATHY. HEEL PROTECTORS IN PLACE. DRESSING NOTED TO UPPER BACK. WILL CONTINUE TO MONITOR.
[2024-08-27] MEDS: QUETIAPINE 25MG TABLET 25 MG PO (20:54)
[2024-08-27] MEDS: ENOXAPARIN 30MG/0.3ML SYRINGE 30 MG SUBCUT (20:54)
--- NOTE | 2024-08-27 21:00 | P.EN_ITS ---
Advance care planning note: Active diagnosis: Respiratory failure secondary to flu and pneumonia, thoracic kyphosis, failure to thrive, hyponatremia, stroke with right-sided deficits and hemineglect. The patient's active diagnoses are of sufficient risk that focused discussion on advanced care planning is indicated in order to allow the patient to thoughtfully consider personal goals of care; and, if situations arise that prevent the ability to personally give input, to ensure appropriate representation of their personal desires through documentation or informed surrogate decision makers. Discussion: Persons present and participating in discussion: Myself and patient's daughter over the phone Discussion: Extensive discussion about patient's change in cognitive state and clinical status. Daughter states patient would not want to take aggressive measures to prolong life. 1 of focus on quality and comfort. Discussed consulting hospice due to change in status plan to focus on quality and comfort. Daughter interested in proceeding with consult. Would like to allow for comfort feeds. Expressed concern that given patient's significant decrease in self feeding, has decreased desire to drink and eat. Not staying hydrated without IV fluids. Expressed concern that patient's condition will progress. Daughter would like to allow for comfort feeds. Wants to keep her mother comfortable. Will consult hospice today for care after transitioning back to residential. Time spent: Total time spent [id number] in education and discussion directly related to advance care plannin min Aureliano Watkins 08/27/2024
[2024-08-28] VITALS: BP 166/82; PULSE 97; RESP 20; TEMP 36.5; O2SAT 92
[2024-08-28 04:00] VITALS: BP 146/82; PULSE 96; RESP 18; TEMP 36.6; O2SAT 94; BMI 23.9
[2024-08-28] MEDS: LEVALBUTEROL 1.25MG/3ML NEB 1.25 MG IH (06:37)
[2024-08-28 06:38] VITALS: PULSE 92; PULSE 95; O2SAT 88
--- NOTE | 2024-08-28 07:21 | P.DS_ITS ---
General Admission date:: 08/23/24 Discharge date: 08/28/24 HPI HPI HPI: Ms. Retana is an 84-year-old female who presents from [place] for increased confusion from baseline. She is reportedly alert with pleasantly confused at baseline. Able to feed herself and perform some ADLs. She is not speaking or communicating at this time. Last known normal was 1/5. Having some muscle twitches in her right upper extremity. Recently negative for flu or COVID but has become more weak. Has developed a wet cough. Hypoxic on arrival. Brought in by EMS from [place]. Patient unable to provide history or review of systems. EMS was called due to patient declining. Necessitating supplemental oxygen for sats above 90. Workup in the ER, patient found to be septic with what appears to be a pneumonia. Initiated on Levaquin. Medicine consulted for admission and further management. Patient is DNR per chart and discussion with family by the ER. It is unclear if she is a hospice patient. Will clarify this. At this time she has a GCS of 10. Is alert but not responding to verbal commands. Appears in moderate distress. Necessitating 6 L for sats of 92%. Remains tachypneic and tachycardic. Febrile to 101. Hospital Course Hospital Course Hospital Course: Ms. Retana is an 84-year-old female with multiple comorbidities and severe thoracic kyphosis who presents from [place] for altered mental status and hypoxia. Found to be septic with pneumonia and respiratory alkalosis. Discussed case with ER physician, request admission for treatment and further management of respiratory failure and encephalopathy. I agreed to admit. PSI/port score of 153. Class V risk. Approximately 30% mortality risk. Seriously ill. Necessitating inpatient care. CT read finally came back showing stroke. Patient has shown very poor p.o. intake. Not able to feed self. Necessitating nursing care for nutrition. Extensive goals of care discussion with family, not interested in pursuing feeding tube. Would like to transition to hospice care. Hospice consulted and patient meets criteria for admission. Will discharge back to [place] on hospice. Problems addressed as follows: Severe sepsis Acute hypoxemic respiratory failure Respiratory alkalosis -Found to be flu positive a chest imaging showing left lower lobe infiltrate. Completing antibiotics based on renal function with last dose of Levaquin administered on day of discharge. Completed 5 days of Tamiflu. Cultures remained negative. Continue DuoNebs 4 times a day as needed. Necessitating supplemental oxygen. Continue 3 L at discharge Encephalopathy Subacute stroke -Patient found to have right sided deficits after improvement in mentation. CT confirmed stroke. Goals of care discussion with family during admission. Given patient's inability to feed herself, loss of functionality on the right side, we will proceed with hospice consult. Patient has had significant change in her functionality mobility. Family would like to focus on comfort. Would like to allow patient to eat/have comfort feeds. Given patient's comorbidities, poor prognosis for any meaningful recovery. Hospice evaluated and patient meets criteria for admission. - Not moving her right upper extremity. Showing signs of hemineglect on right side -Discontinue Plavix. Allergic to aspirin CKD 4 Hyponatremia -Kidney function showed surprising improvement during admission. Last labs showed BUN of 24, creatinine 1.3. No further labs obtained in light of goals of care. -Sodium crept up during admission. 148 on 08/27. D5 half-normal was administered for 1 L. Given patient's poor free water intake, anticipate sodium to creep up again. Reportedly has history of A-fib/CHF: Continue metoprolol succinate 25 mg twice daily In light of goals of care, recommend allowing for comfort feeds. Patient will need assistance with feeding and fluid intake. Hospice agreeable to admit patient. Total time spent on discharge 32 minutes in counseling, documentation, chart review, and direct care with patient. Exam Data for Last 24 hours Vital signs and Labs for Last 24 Hours: Temp Pulse Resp BP Pulse Ox O2 Del Method O2 Flow Rate 97.9 F 95 H 18 146/82 H 88 L Nasal Cannula 3 08/28/24 04:00 08/28/24 06:38 08/28/24 04:00 08/28/24 04:00 08/28/24 06:38 08/28/24 06:44 08/28/24 06:44 Laboratory Results - last 24 hr 08/27/24 06:29: WBC 9.9, RBC 4.30, Hgb 11.9 L, Hct 37.2, MCV 86.5, MCH 27.7, MCHC 32.0, RDW 14.8, Plt Count 381, MPV 9.8, Neut % (Auto) 72.4, Lymph % (Auto) 12.4, [place] % (Auto) 8.5, Eos % (Auto) 0.6, Baso % (Auto) 0.6, Neut # (Auto) 7.2, Lymph # (Auto) 1.2, [place] # (Auto) 0.8, Eos # (Auto) 0.1, Baso # (Auto) 0.1, [place] um 148 H, Potassium 3.7, Chloride 116 H, Carbon Dioxide 24, Anion Gap 11.7, BUN 24 H, Creatinine 1.30 H, Estimated Creat Clear 31, Estimated GFR 39 L, Est GFR ( Amer) 47 L, Glucose 112 H, Calcium 8.2 L, Magnesium 2.6 H D, Total Bilirubin 0.4, AST 30, ALT 15, Alkaline Phosphatase 87, Total Protein 6.1 L, Albumin 3.0 L, Globulin 3.1, Albumin/Globulin Ratio 1.0 L I & O for Last 24 hours: Intake & Output 08/25/24 08/26/24 08/27/24 08/28/24 23:59 23:59 23:59 23:59 Intake Total 0 / 0 650 / 650 375 / 375 Output Total 0 / 0 0 / 0 100 / 100 Balance 0 / 0 650 / 650 275 / 275 Weight 58.74 kg 60.373 kg 59.738 kg 59.012 kg Microbiology Reports for the Last 24 Hours: Microbiology 08/23/24 17:30 Blood Blood Culture - Preliminary NO GROWTH AFTER 4 DAYS 08/23/24 17:30 Blood Blood Culture - Preliminary NO GROWTH AFTER 4 DAYS Constitutional Constitutional: mild distress, thin, chronically ill appearing and cooperative *Routine HEENT Exam Head: Present normocephalic Eye: Present EOMI and PERRL ENT: Present mucous membranes moist *Routine Neck Exam Neck: Absent lymphadenopathy Comments: Significant thoracic kyphosis, chin on chest *Routine Respiratory Exam Respiratory: Present crackles (Left lung field); Absent accessory muscle use, rhonchi, wheezes or diminished air movement *Routine Cardiovascular Exam Cardiovascular: Present RRR *Routine Abdominal Exam Abdominal: Present soft and normoactive bowel sounds; Absent tenderness *Routine Rectal Exam Patient deferred: visual exam *Routine Exam Patient deferred: external exam *Routine Extremities Exam Extremities: Absent cyanosis, clubbing or edema Routine Back/Spine/Pelvis Exam Comments: Upper thoracic spine with significant kyphosis, patient has rods straightening her back. Given the prominence of her kyphosis, hardware palpable just below skin. Blanching red skin overlying most cephalad portion of hardware. Concern for stage I decubitus wound. Present on admission. *Routine Skin Exam Skin: Present warm; Absent rash *Routine Neurological Exam Neurological: Present alert, altered mental status and moving all extremities Comments: Oriented to self, responds to voice. Intermittent response to questions Results Data Completed and Pending Labs on day of discharge: Labs from last 24 hours 08/27/24 06:29 WBC 9.9 RBC 4.30 Hgb 11.9 L Hct 37.2 MCV 86.5 MCH 27.7 MCHC 32.0 RDW 14.8 Plt Count 381 MPV 9.8 Neut % (Auto) 72.4 Lymph % (Auto) 12.4 [place] % (Auto) 8.5 Eos % (Auto) 0.6 Baso % (Auto) 0.6 Neut # (Auto) 7.2 Lymph # (Auto) 1.2 [place] # (Auto) 0.8 Eos # (Auto) 0.1 Baso # (Auto) 0.1 Sodium 148 H Potassium 3.7 Chloride 116 H Carbon Dioxide 24 Anion Gap 11.7 BUN 24 H Creatinine 1.30 H Estimated Creat Clear 31 Estimated GFR 39 L Est GFR ( Amer) 47 L Glucose 112 H Calcium 8.2 L Magnesium 2.6 H D Total Bilirubin 0.4 AST 30 ALT 15 Alkaline Phosphatase 87 Total Protein 6.1 L Albumin 3.0 L Globulin 3.1 Albumin/Globulin Ratio 1.0 L Preliminary micro results at discharge 08/23/24 17:30 Blood Culture - Preliminary Blood NO GROWTH AFTER 4 DAYS 08/23/24 17:30 Blood Culture - Preliminary Blood NO GROWTH AFTER 4 DAYS DS: Diagnosis Discharge Diagnosis (1) Severe sepsis: Status: Acute Code(s): A41.9 - Sepsis, unspecified organism; R65.20 - Severe sepsis without septic shock (2) Pneumonia: Status: Acute Code(s): J18.9 - Pneumonia, unspecified organism (3) Acute encephalopathy: Status: Acute Code(s): G93.40 - Encephalopathy, unspecified (4) CVA (cerebral vascular accident): Status: Acute Code(s): I63.9 - Cerebral infarction, unspecified (5) Acute hypoxic respiratory failure: Status: Acute Code(s): J96.01 - Acute respiratory failure with hypoxia (6) A-fib: Status: Acute Code(s): I48.91 - Unspecified atrial fibrillation Qualifiers: Atrial fibrillation type: paroxysmal Qualified Code(s): I48.0 - Paroxysmal atrial fibrillation (7) Postural kyphosis, thoracic region: Status: Acute Code(s): M40.04 - Postural kyphosis, thoracic region (8) Severe protein-calorie malnutrition: Status: Acute Code(s): E43 - Unspecified severe protein-calorie malnutrition Meds Home Medications and Allergies Home Medications ?Medication ?Instructions ?Recorded ?Confirmed ?Type acetaminophen 325 mg tablet 325 mg PO Q6 PRN Pain (Scale Score 08/23/24 08/24/24 History 1-3) bumetanide 2 mg tablet 2 mg PO DAILY 08/23/24 08/24/24 History dextran 70-hypromellose (PF) 0.1 2 drp ophthalmic (eye) BID 08/23/24 08/24/24 History %-0.3 % eye drops in a dropperette (Bion Tears (PF)) duloxetine 20 mg capsule,delayed 20 mg PO DAILY 08/23/24 08/24/24 History release famotidine 10 mg tablet 10 mg PO DAILY 08/23/24 08/24/24 History metoprolol succinate 25 mg 25 mg PO BID 08/23/24 08/24/24 History tablet,extended release 24 hr ondansetron 4 mg disintegrating 4 mg PO DAILY 08/23/24 08/24/24 History tablet pramipexole 0.5 mg tablet 0.5 mg PO DAILY 08/23/24 08/24/24 History quetiapine 25 mg tablet 25 mg PO HS 08/23/24 08/24/24 History tramadol 50 mg tablet 50 mg PO Q8 PRN Pain (Scale Score 08/23/24 08/24/24 History 4-6) isosorbide mononitrate 30 mg 30 mg PO DAILY 08/24/24 08/24/24 History tablet,extended release 24 hr magnesium hydroxide 400 mg/5 mL 2,400 mg PO DAILY PRN Constipation 08/24/24 08/24/24 History oral suspension (Milk of Magnesia) nystatin 100,000 unit/gram topical 100,000 unit topical BID 08/24/24 08/24/24 History powder (Nyamyc) ipratropium bromide 0.02 % 0.5 mg (2.5 mL) inhalation QIDP 08/28/24 Rx solution for inhalation PRN Shortness Of Breath 30 days #150 mL New Prescriptions to Start Prescriptions: ipratropium bromide Aureliano Watkins Allergies Allergy/AdvReac Type Severity Reaction Status Date / Time aspirin Allergy Unknown Verified 08/23/24 15:17 allergy reaction Cephalosporins Allergy Unknown Verified 08/23/24 15:17 allergy reaction clindamycin Allergy Unknown Verified 08/23/24 15:17 allergy reaction codeine Allergy Unknown Verified 08/23/24 15:17 allergy reaction meperidine (From Demerol) Allergy Unknown Verified 08/23/24 15:17 allergy reaction morphine Allergy Unknown Verified 08/23/24 15:17 allergy reaction Morpholine Analogues Allergy Unknown Verified 08/23/24 15:17 allergy reaction Penicillins Allergy Unknown Verified 08/23/24 15:17 allergy reaction Sulfa (Sulfonamide Allergy Unknown Verified 08/23/24 15:17 Antibiotics) allergy reaction oxycodone (From Percocet) AdvReac Unknown Verified 08/23/24 15:17 allergy reaction Discharge Plan Disposition Patient Disposition: Hospice - Medical Facility Condition: Undetermined Discharge Order Discharge Orders: Discharge Order (Routine); Ordered 08/28/24 Ordered By: Aureliano Watkins Follow up Plan Prescriptions/Medication Reconciliation: New ipratropium bromide 0.02 % Solution 0.5 mg inhalation QIDP PRN (Reason: Shortness Of Breath) 30 Days Qty: 150 0RF Continued acetaminophen 325 mg tablet 325 mg PO Q6 PRN (Reason: Pain (Scale Score 1-3)) quetiapine 25 mg tablet 25 mg PO HS bumetanide 2 mg tablet 2 mg PO DAILY famotidine 10 mg Tablet 10 mg PO DAILY tramadol 50 mg tablet 50 mg PO Q8 PRN (Reason: Pain (Scale Score 4-6)) pramipexole 0.5 mg tablet 0.5 mg PO DAILY metoprolol succinate 25 mg tablet extended release 24 hr 25 mg PO BID Rx Instructions: Hold if SBP <100 or DBP <60 or HR <60 ondansetron 4 mg tablet,disintegrating 4 mg PO DAILY duloxetine 20 mg capsule,delayed release(DR/EC) 20 mg PO DAILY Bion Tears (PF) 0.1-0.3 % dropperette 2 drp ophthalmic (eye) BID isosorbide mononitrate 30 mg tablet extended release 24 hr 30 mg PO DAILY magnesium hydroxide [Milk of Magnesia] 400 mg/5 mL suspension 2,400 mg PO DAILY PRN (Reason: Constipation) nystatin [Nyamyc] 100,000 unit/gram powder 100,000 unit TOPICAL BID Discontinued potassium chloride 10 mEq capsule, extended release 10 meq PO DAILY levalbuterol HCl 0.63 mg/3 mL solution for nebulization 0.63 mg INHALATION TID losartan 25 mg tablet 25 mg PO DAILY Rx Instructions: hold if DBP less than 60 levofloxacin 750 mg tablet 750 mg PO Q48H Problem Reconciliation Problems Reviewed?: Yes Patient Discharge Instructions ACTIVITY: Continue current activity DIET: continue same diet Patient Instructions: DI for Pneumonia -- Adult, DI for Stroke-Ischemic, DI for Influenza -- Adult, DI for Sepsis -- Adult Print Language: Norwegian Providers Primary Care Provider: Provider,Referral Admit Provider: Aureliano Watkins Attending Provider: Aureliano Watkins
[2024-08-28 08:00] VITALS: BP 130/81; PULSE 94; RESP 28; TEMP 36.7; O2SAT 95
[2024-08-28] MEDS: METOPROLOL SUCCINATE XL 50MG TABLET 50 MG PO (08:53)
[2024-08-28] MEDS: DULOXETINE 30MG CAPSULE.DR 30 MG PO (08:53)
[2024-08-28] MEDS: PRAMIPEXOLE 0.25MG TAB 0.5 MG PO (08:53)
[2024-08-28] MEDS: IRBESARTAN 75MG TABLET 37.5 MG PO (08:53)
[2024-08-28] MEDS: ISOSORBIDE MONO 30MG TAB.ER.24H 30 MG PO (08:53)
[2024-08-28] MEDS: CLOPIDOGREL 75MG TAB 75 MG PO (08:53)
[2024-08-28] MEDS: OSELTAMIVIR PHOSPHATE 6MG/ML ORAL SUSP 60ML 30 MG PO (08:56)
[2024-08-28] MEDS: levoFLOXacin 750 MG TABLET PO (11:00)
== END 2024-08-28 11:56 | disposition hospice, inpatient (51) | DRG 865 ==
LOC: ER 17:41 → 2ND 17:59
PROVIDERS: Admitting Provider Internal Medicine Adolescent Medicine; Emergency Provider Student in an Organized Health Care Education/Training Program; Visit Provider Internal Medicine Adolescent Medicine
DX: J10.81 Influenza due to other identified influenza virus with encephalopathy (principal); A41.9 Sepsis, unspecified organism; I63.9 Cerebral infarction, unspecified; E43 Unspecified severe protein-calorie malnutrition; J96.01 Acute respiratory failure with hypoxia; G81.01 Flaccid hemiplegia affecting right dominant side; E87.1 Hypo-osmolality and hyponatremia; N18.4 Chronic kidney disease, stage 4 (severe); I50.9 Heart failure, unspecified; L89.101 Pressure ulcer of unspecified part of back, stage 1; I48.91 Unspecified atrial fibrillation; M40.294 Other kyphosis, thoracic region; Z66 Do not resuscitate; R62.7 Adult failure to thrive; Z68.23 Body mass index [BMI] 23.0-23.9, adult; Z79.899 Other long term (current) drug therapy
CPT/HCPCS: 36415; 70450; 71045; 80048; 80053; 81001; 82803; 83605; 83735; 84439; 84443; 85007; 85025; 87040; 87070; 87205; 87631; 93005; 94640; 94761; 97162; 97166; 97530; 99291; J0131; J1650; J1956; J2270; J3475; J3480; J7120; J7614; J7644